=== PATIENT | female | born 1935 | race Caucasian/White ===

== ENCOUNTER 2023-01-13 08:05 | Oncology outpatient (recurring) (ONCR) | payer MEDICARE, SELFPAY | END 2023-01-16 23:59 | disposition home or self-care (01) | PROVIDERS: PCP Family Medicine; Visit Provider Internal Medicine Medical Oncology | DX: Z08 Encounter for follow-up examination after completed treatment for malignant neoplasm (principal); Z85.3 Personal history of malignant neoplasm of breast; Z85.42 Personal history of malignant neoplasm of other parts of uterus; Z85.820 Personal history of malignant melanoma of skin; Z85.850 Personal history of malignant neoplasm of thyroid; Z90.13 Acquired absence of bilateral breasts and nipples; Z90.09 Acquired absence of other part of head and neck; Z90.79 Acquired absence of other genital organ(s); Z90.89 Acquired absence of other organs; Z87.891 Personal history of nicotine dependence | CPT/HCPCS: 99203 ==

== ENCOUNTER 2023-01-25 09:52 | Outpatient (CLI) | payer MEDICARE, SELFPAY ==
[2023-01-25 11:08] LABS: Basophils # 0.1 10^3/uL (0.0-0.1); Basophils % 0.8 %; Eosinophils # 0.2 10^3/uL (0.0-0.8); Eosinophils % 2.2 %; Hematocrit 41.7 % (37.0-47.0); Hemoglobin 13.4 g/dL (11.5-15.3); Lymphocytes # 1.3 10^3/uL (0.8-4.8); Lymphocytes % 15.5 %; Mean Corpuscular HGB Conc 32.1 g/dL (30.0-36.0); Mean Corpuscular Hemoglobin 28.5 pg (28.0-34.0); Mean Corpuscular Volume 88.7 fl (81-99); Mean Platelet Volume 10.4 fL (7.4-10.4); Monocytes # 0.8 10^3/uL (0.2-0.9); Monocytes % 9.5 %; Neutrophils # 6.08 10^3/uL (1.8-7.7); Neutrophils % 71.6 %; Nucleated Red Blood Cells % 0 %; Platelet Count 292 10^3/cmm (130-400); Red Cell Distribution Width 12.5 % (12.1-15.1); White Blood Count 8.5 10^3/uL (4.0-10.0)
[2023-01-25 11:32] LABS: Alanine Aminotransferase 17 U/L (0-33); Albumin Level 3.8 g/dL (3.5-5.2); Alkaline Phosphatase 95 U/L (35-105); Anion Gap 14.5 (5-19); Aspartate Amino Transferase 17 U/L (0-32); Blood Urea Nitrogen 10 mg/dL (8-23); Calcium 8.8 mg/dL (8.5-10.5); Carbon Dioxide 26 mmol/L (22-29); Chloride 100 mmol/L (98-107); Free T4 Free Thyroxine 1.75 ng/dL (0.82-1.77); Globulin 3.1 g/dL (1.3-4.6); Glucose 104 mg/dL (65-115); Osmolality Calculated 281 mOsm/kg (285-295); Potassium 4.5 mmol/L (3.5-5.1); Sodium 136 mmol/L (136-145); Thyroid Stimulating Hormone 0.47 uIU/mL (0.27-4.20); Total Bilirubin 0.2 mg/dL (0.15-1.2); Total Protein 6.9 g/dL (6.6-8.7)
[2023-01-28 16:00] LABS: Thyroglobulin AB 1 IU/mL (< or = 1)
[2023-02-05 22:49] LABS: Thyroglobulin Level <0.4 ng/mL
== END 2023-01-25 09:53 | disposition home or self-care (01) ==
PROVIDERS: PCP Family Medicine; Visit Provider Internal Medicine Medical Oncology
DX: C73 Malignant neoplasm of thyroid gland (principal)
CPT/HCPCS: 36415; 80053; 84432; 84439; 84443; 85025; 86800

== ENCOUNTER 2023-01-25 20:42 | Emergency (ER) | payer MEDICARE, SELFPAY ==
[2023-01-25 20:54] VITALS: BP 175/82; PULSE 103; RESP 18; TEMP 36.7; O2SAT 97
--- NOTE | 2023-01-25 21:09 | ED_ITS ---
Documented by User: Devendra Ryan MD 01/28/23 21:43 HPI - General Adult General: Chief complaint: General Medical Stated complaint: low bp Time Seen by Provider: 01/25/23 20:59 History of Present Illness: Ms Blandon is an 87-year-old lady with history of hypertension presenting to the emergency department for generalized illness. She reports being at her baseline health and took her blood pressure medications as normal. Apparently a pill looked different and so she contacted her doctor and was told to take enalapril 20 mg twice daily. Shortly after taking the second dose she developed feeling shakiness like her heart was pounding. She currently feels a little better. At worst symptoms were moderate to severe in intensity. Denies similar episodes in the past or other known specific trigger. No other specific changes in health, exacerbating, or alleviating factors identified. Onset (ago): hour(s) Severity: moderate Quality: other Relieving factors: none Exacerbating factors: none Associated symptoms: Reports malaise, palpitations and other Review of Systems General: Reports: 10 or more systems reviewed and unremarkable except in HPI and below Const: Reports: malaise Card: Reports: palpitations PFSH ED PFSH: Medical History Chronic kidney disease Coronary artery disease Degenerative arthritis History of breast cancer History of cancer of vulva History of melanoma History of thyroid cancer Hyperlipidemia Hypertension Surgical History H/O bilateral cataract extraction History of bilateral mastectomy (12/03/15) Bilateral mastectomy with right axillary lymph node dissection History of heart bypass surgery History of hysterectomy with bilateral oophorectomy (1984) History of lumbosacral spine surgery History of melanoma excision excision of melanoma from the left cheek History of removal of implants of both breasts History of thyroidectomy (05/12/18) Total thyroidectomy 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 History of total knee arthroplasty History of vulvectomy (1990) Partial vulvectomy for vulvar cancer Family History Sister Dementia Brother Stroke Mother Stroke CAD (coronary artery disease) Cancer uterine Father Lung disease Family/Other Suicide Grandson Other Hyperlipidemia Hypertension Denies family history of Diabetes Clotting disorder Psychiatric illness Chronic kidney disease (CKD) Anesthesia complication Bleeding disorder Social History Smoking and tobacco status: former smoker Quit status (tobacco): has quit using tobacco Year quit tobacco: 1978 Former quit date comment: smoked x 27 years Alcohol intake: former Former alcohol use details: socially Physical Exam Const: COMMON NORMALS: alert GENERAL APPEARANCE: cooperative and well developed HENMT: COMMON NORMALS: normocephalic and atraumatic HEAD & SCALP: normocephalic and atraumatic Eye: COMMON NORMALS: conjunctivae normal CONJUNCTIVA: Yes conjunctivae normal SCLERA: sclerae normal Neck/C-Spine: COMMON NORMALS: supple GENERAL: Yes trachea midline Resp: COMMON NORMALS: clear to auscultation bilaterally EFFORT & INSPECTION: Yes able to speak in complete sentences AUSCULTATION: clear to auscultation bilaterally Cardio: COMMON NORMALS: regular rhythm RATE: tachycardic RHYTHM: regular rhythm GI: COMMON NORMALS: Soft to palpation PALPATION: Yes Soft to palpation and No Tenderness to palpation present (GI) Extremity: GENERAL: Yes normal exam except as noted and No edema Neuro: COMMON NORMALS: moves all extremities SENSORIUM/ORIENTATION: Yes alert and No Orientation impaired Psych: COMMON NORMALS: mental status grossly normal and Normal thought process present THOUGHT PROCESS: Normal thought process present Course Vital Signs: Vital signs: Vital Signs Temperature 98.0 F 01/26/23 00:23 Pulse Rate 68 01/26/23 00:23 Respiratory Rate 16 01/26/23 00:23 Blood Pressure 133/60 01/26/23 00:23 Pulse Oximetry 98 01/26/23 00:23 Oxygen Delivery Me thod Room Air 01/25/23 20:54 MDM - General Adult Medical Decision Making 87-year-old lady presenting due to concern over blood pressure changes associated with generalized symptoms. Exam as above. EKG demonstrate sinus tachycardia with occasional PVCs, normal axis and intervals, no STEMI.. Labs notable for mild leukocytosis, normal hemoglobin and platelet count of metabolic panel without acute derangement. Initial troponin is minimally elevated with repeat pending. Patient treated with small IV fluid bolus and medications for hypertension with improvement. Handed off to Dr. Morse pending completion of ED evaluation. Patient presents here with chest pain is atypical in nature she has been pain- free here her troponins are normal she feels much improved she is stable for discharge she is to follow-up with PCP and return if worsening she understands a grees to plan. Lab Data 01/25/23 21:49 01/25/23 21:49 Laboratory Results WBC 11.9 10^3/uL (4.0-10.0) H 01/25/23 21:49 RBC 4.65 10^6/uL (4.1-5.3) 01/25/23 21:49 Hgb 13.4 g/dL (11.5-15.3) 01/25/23 21:49 Hct 40.8 % (37.0-47.0) 01/25/23 21:49 MCV 87.7 fl (81-99) 01/25/23 21:49 MCH 28.8 pg (28.0-34.0) 01/25/23 21:49 MCHC 32.8 g/dL (30.0-36.0) 01/25/23 21:49 RDW 12.9 % (12.1-15.1) 01/25/23 21:49 Plt Count 278 10^3/cmm (130-400) 01/25/23 21:49 MPV 10.1 fL (7.4-10.4) 01/25/23 21:49 Neut % (Auto) 71.9 % 01/25/23 21:49 Lymph % (Auto) 14.6 % 01/25/23 21:49 [place] % (Auto) 10.3 % 01/25/23 21:49 Eos % (Auto) 2.1 % 01/25/23 21:49 Baso % (Auto) 0.8 % 01/25/23 21:49 Neut # (Auto) 8.56 10^3/uL (1.8-7.7) H 01/25/23 21:49 Lymph # (Auto) 1.7 10^3/uL (0.8-4.8) 01/25/23 21:49 [place] # (Auto) 1.2 10^3/uL (0.2-0.9) H 01/25/23 21:49 Eos # (Auto) 0.3 10^3/uL (0.0-0.8) 01/25/23 21:49 Baso # (Auto) 0.1 10^3/uL (0.0-0.1) 01/25/23 21:49 Nucleated RBC % (auto) 0 % 01/25/23 21:49 Nucleated RBCs # 0.0 /100WBC 01/25/23 21:49 Sodium 138 mmol/L (136-145) 01/25/23 21:49 Potassium 4.0 mmol/L (3.5-5.1) 01/25/23 21:49 Chloride 102 mmol/L (98-107) 01/25/23 21:49 Carbon Dioxide 26 mmol/L (22-29) 01/25/23 21:49 Anion Gap 14.0 (5-19) 01/25/23 21:49 BUN 12 mg/dL (8-23) 01/25/23 21:49 Creatinine 0.8 mg/dL (0.5-0.9) 01/25/23 21:49 GFR Calculation Not Reportable 01/25/23 21:49 Glucose 114 mg/dL (65-115) 01/25/23 21:49 Calculated Osmolality 287 mOsm/kg (285-295) 01/25/23 21:49 Calcium 9.0 mg/dL (8.5-10.5) 01/25/23 21:49 Magnesium 2.1 mg/dL (1.7-2.3) 01/25/23 21:49 Total Bilirubin 0.2 mg/dL (0.15-1.2) 01/25/23 21:49 AST 20 U/L (0-32) 01/25/23 21:49 ALT 17 U/L (0-33) 01/25/23 21:49 Alkaline Phosphatase 96 U/L (35-105) 01/25/23 21:49 Troponin T Baseline 18 ng/L (0-10) H 01/25/23 21:49 Troponin T 120 Minute 20.13 ng/L (0-10) H 01/25/23 23:36 Delta Troponin T 2.13 ABS# (0-10) 01/25/23 23:36 NT-Pro-B Natriuret Pep 617 pg/mL (0-450) H 01/25/23 21:49 Total Protein 6.8 g/dL (6.6-8.7) 01/25/23 21:49 Albumin 3.9 g/dL (3.5-5.2) 01/25/23 21:49 Globulin 2.9 g/dL (1.3-4.6) 01/25/23 21:49 TSH 0.92 uIU/mL (0.27-4.20) 01/25/23 21:49 Discharge Plan Discharge Patient Disposition: Home Clinical Impression: Hypertension, Heart palpitations Condition: Stable Prescriptions: No Action zinc gluconate 50 mg tablet 50 mg PO DAILY vitamin K2 45 mcg capsule See Rx Instructions PO DAILY Rx Instructions: dose unknown orally daily; cholecalciferol (vitamin D3) 25 mcg (1,000 unit) capsule 25 mcg PO DAILY ascorbic acid (vitamin C) 1,000 mg tablet 4 g PO BID cyanocobalamin (vitamin B-12) 1,000 mcg capsule 1,000 mcg PO DAILY tramadol 50 mg tablet 50 mg PO Q8H PRN Rx Instructions: for up to 90 days multivitamin Tablet 1 tab PO DAILY red yeast rice 600 mg capsule See Rx Instructions PO DAILY Rx Instructions: strength unknown orally daily; give with meal/snack primidone 50 mg tablet 250 mg PO TID krill oil 500 mg capsule See Rx Instructions PO .COMPLEX Rx Instructions: strength unknown orally; hydralazine 50 mg tablet 50 mg PO BID furosemide 40 mg tablet 40 mg PO DAILY ezetimibe 10 mg tablet 10 mg PO DAILY clonidine HCl 0.1 mg tablet 0.1 mg PO TID aspirin [Rosy Low Dose Aspirin] 81 mg tablet,delayed release (DR/EC) 81 mg PO DAILY metoprolol succinate 100 mg tablet extended release 24 hr 100 mg PO DAILY levothyroxine 137 mcg capsule 137 mcg PO DAILY enalapril maleate 20 mg tablet 20 mg PO BID Discharge Orders: Discharge ED (Routine); Ordered 01/26/23 Ordered By: Kathy Morse Referrals: Wiley Middleton MD [Primary Care Provider] - 1-3 days Discharge Diet: Usual diet Discharge Activity: Resume usual activity Patient Instructions: Heart Palpitations (ED), Hypertension (ED) Activity Restrictions/Additional Instructions: Thank you for visiting the emergency department. You were seen and evaluated for episode of high blood pressure as well as generalized symptoms including heart palpitations. The exact cause of your symptoms is unclear though does not appear to need hospitalization at this time. Please continue your medication regimen and call your primary care provider in the morning for follow-up. Return to the emergency department for chest pain, shortness of breath, recurrent symptoms, headache, any new neurologic symptoms, or anything else that you are concerned about and feel needs emergency department evaluation. Coding Level of Care Code ED Commercial Management Accountant for Chg Fwd Documented by User: Kathy Morse MD 01/26/23 00:19 HPI - General Adult General: Chief complaint: General Medical Stated complaint: low bp Time Seen by Provider: 01/25/23 20:59 PFSH ED PFSH: Medical History Chronic kidney disease Coronary artery disease Degenerative arthritis History of breast cancer History of cancer of vulva History of melanoma History of thyroid cancer Hyperlipidemia Hypertension Surgical History H/O bilateral cataract extraction History of bilateral mastectomy (12/03/15) Bilateral mastectomy with right axillary lymph node dissection History of heart bypass surgery History of hysterectomy with bilateral oophorectomy (1984) History of lumbosacral spine surgery History of melanoma excision excision of melanoma from the left cheek History of removal of implants of both breasts History of thyroidectomy (05/12/18) Total thyroidectomy 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 History of total knee arthroplasty History of vulvectomy (1990) Partial vulvectomy for vulvar cancer Family History Sister Dementia Brother Stroke Mother Stroke CAD (coronary artery disease) Cancer uterine Father Lung disease Family/Other Suicide Grandson Other Hyperlipidemia Hypertension Denies family history of Diabetes Clotting disorder Psychiatric illness Chronic kidney disease (CKD) Anesthesia complication Bleeding disorder Social History Smoking and tobacco status: former smoker Quit status (tobacco): has quit using tobacco Year quit tobacco: 1978 Former quit date comment: smoked x 27 years Alcohol intake: former Former alcohol use details: socially Course Vital Signs: Vital signs: Vital Signs Temperature 98.0 F 01/26/23 00:23 Pulse Rate 68 01/26/23 00:23 Respiratory Rate 16 01/26/23 00:23 Blood Pressure 133/60 01/26/23 00:23 Pulse Oximetry 98 01/26/23 00:23 Oxygen Delivery Me thod Room Air 01/25/23 20:54 MDM - General Adult Medical Decision Making Patient presents here with chest pain is atypical in nature she has been pain- free here her troponins are normal she feels much improved she is stable for discharge she is to follow-up with PCP and return if worsening she understands agrees to plan. Medical Records I reviewed the patient's medical records. Lab Data I reviewed the patient's lab results. 01/25/23 21:49 01/25/23 21:49 Laboratory Results WBC 11.9 10^3/uL (4.0-10.0) H 01/25/23 21:49 RBC 4.65 10^6/uL (4.1-5.3) 01/25/23 21:49 Hgb 13.4 g/dL (11.5-15.3) 01/25/23 21:49 Hct 40.8 % (37.0-47.0) 01/25/23 21:49 MCV 87.7 fl (81-99) 01/25/23 21:49 MCH 28.8 pg (28.0-34.0) 01/25/23 21:49 MCHC 32.8 g/dL (30.0-36.0) 01/25/23 21:49 RDW 12.9 % (12.1-15.1) 01/25/23 21:49 Plt Count 278 10^3/cmm (130-400) 01/25/23 21:49 MPV 10.1 fL (7.4-10.4) 01/25/23 21:49 Neut % (Auto) 71.9 % 01/25/23 21:49 Lymph % (Auto) 14.6 % 01/25/23 21:49 [place] % (Auto) 10.3 % 01/25/23 21:49 Eos % (Auto) 2.1 % 01/25/23 21:49 Baso % (Auto) 0.8 % 01/25/23 21:49 Neut # (Auto) 8.56 10^3/uL (1.8-7.7) H 01/25/23 21:49 Lymph # (Auto) 1.7 10^3/uL (0.8-4.8) 01/25/23 21:49 [place] # (Auto) 1.2 10^3/uL (0.2-0.9) H 01/25/23 21:49 Eos # (Auto) 0.3 10^3/uL (0.0-0.8) 01/25/23 21:49 Baso # (Auto) 0.1 10^3/uL (0.0-0.1) 01/25/23 21:49 Nucleated RBC % (auto) 0 % 01/25/23 21:49 Nucleated RBCs # 0.0 /100WBC 01/25/23 21:49 Sodium 138 mmol/L (136-145) 01/25/23 21:49 Potassium 4.0 mmol/L (3.5-5.1) 01/25/23 21:49 Chloride 102 mmol/L (98-107) 01/25/23 21:49 Carbon Dioxide 26 mmol/L (22-29) 01/25/23 21:49 Anion Gap 14.0 (5-19) 01/25/23 21:49 BUN 12 mg/dL (8-23) 01/25/23 21:49 Creatinine 0.8 mg/dL (0.5-0.9) 01/25/23 21:49 GFR Calculation Not Reportable 01/25/23 21:49 Glucose 114 mg/dL (65-115) 01/25/23 21:49 Calculated Osmolality 287 mOsm/kg (285-295) 01/25/23 21:49 Calcium 9.0 mg/dL (8.5-10.5) 01/25/23 21:49 Magnesium 2.1 mg/dL (1.7-2.3) 01/25/23 21:49 Total Bilirubin 0.2 mg/dL (0.15-1.2) 01/25/23 21:49 AST 20 U/L (0-32) 01/25/23 21:49 ALT 17 U/L (0-33) 01/25/23 21:49 Alkaline Phosphatase 96 U/L (35-105) 01/25/23 21:49 Troponin T Baseline 18 ng/L (0-10) H 01/25/23 21:49 Troponin T 120 Minute 20.13 ng/L (0-10) H 01/25/23 23:36 Delta Troponin T 2.13 ABS# (0-10) 01/25/23 23:36 NT-Pro-B Natriuret Pep 617 pg/mL (0-450) H 01/25/23 21:49 Total Protein 6.8 g/dL (6.6-8.7) 01/25/23 21:49 Albumin 3.9 g/dL (3.5-5.2) 01/25/23 21:49 Globulin 2.9 g/dL (1.3-4.6) 01/25/23 21:49 TSH 0.92 uIU/mL (0.27-4.20) 01/25/23 21:49 Discharge Plan Discharge Patient Disposition: Home Clinical Impression: Hypertension, Heart palpitations Condition: Stable Prescriptions: No Action zinc gluconate 50 mg tablet 50 mg PO DAILY vitamin K2 45 mcg capsule See Rx Instructions PO DAILY Rx Instructions: dose unknown orally daily; cholecalciferol (vitamin D3) 25 mcg (1,000 unit) capsule 25 mcg PO DAILY ascorbic acid (vitamin C) 1,000 mg tablet 4 g PO BID cyanocobalamin (vitamin B-12) 1,000 mcg capsule 1,000 mcg PO DAILY tramadol 50 mg tablet 50 mg PO Q8H PRN Rx Instructions: for up to 90 days multivitamin Tablet 1 tab PO DAILY red yeast rice 600 mg capsule See Rx Instructions PO DAILY Rx Instructions: strength unknown orally daily; give with meal/snack primidone 50 mg tablet 250 mg PO TID krill oil 500 mg capsule See Rx Instructions PO .COMPLEX Rx Instructions: strength unknown orally; hydralazine 50 mg tablet 50 mg PO BID furosemide 40 mg tablet 40 mg PO DAILY ezetimibe 10 mg tablet 10 mg PO DAILY clonidine HCl 0.1 mg tablet 0.1 mg PO TID aspirin [Rosy Low Dose Aspirin] 81 mg tablet,delayed release (DR/EC) 81 mg PO DAILY metoprolol succinate 100 mg tablet extended release 24 hr 100 mg PO DAILY levothyroxine 137 mcg capsule 137 mcg PO DAILY enalapril maleate 20 mg tablet 20 mg PO BID Discharge Orders: Discharge ED (Routine); Ordered 01/26/23 Ordered By: Kathy Morse Referrals: Wiley Middleton MD [Primary Care Provider] - 1-3 days Discharge Diet: Usual diet Discharge Activity: Resume usual activity Patient Instructions: Heart Palpitations (ED), Hypertension (ED) Activity Restrictions/Additional Instructions: Thank you for visiting the emergency department. You were seen and evaluated for episode of high blood pressure as well as generalized symptoms including heart palpitations. The exact cause of your symptoms is unclear though does not appear to need hospitalization at this time. Please continue your medication regimen and call your primary care provider in the morning for follow-up. Return to the emergency department for chest pain, shortness of breath, recurre nt symptoms, headache, any new neurologic symptoms, or anything else that you are concerned about and feel needs emergency department evaluation. Coding Level of Care Code ED Commercial Management Accountant for Annetta Dumont
[2023-01-25 21:29] VITALS: BP 151/52; RESP 16
[2023-01-25 21:54] LABS: Basophils # 0.1 10^3/uL (0.0-0.1); Basophils % 0.8 %; Eosinophils # 0.3 10^3/uL (0.0-0.8); Eosinophils % 2.1 %; Hematocrit 40.8 % (37.0-47.0); Hemoglobin 13.4 g/dL (11.5-15.3); Lymphocytes # 1.7 10^3/uL (0.8-4.8); Lymphocytes % 14.6 %; Mean Corpuscular HGB Conc 32.8 g/dL (30.0-36.0); Mean Corpuscular Hemoglobin 28.8 pg (28.0-34.0); Mean Corpuscular Volume 87.7 fl (81-99); Mean Platelet Volume 10.1 fL (7.4-10.4); Monocytes # 1.2 10^3/uL (0.2-0.9); Monocytes % 10.3 %; Neutrophils # 8.56 10^3/uL (1.8-7.7); Neutrophils % 71.9 %; Nucleated Red Blood Cells % 0 %; Platelet Count 278 10^3/cmm (130-400); Red Blood Count 4.65 10^6/uL (4.1-5.3); Red Cell Distribution Width 12.9 % (12.1-15.1); White Blood Count 11.9 10^3/uL (4.0-10.0)
--- NOTE | 2023-01-25 22:12 | ECG_ITS ---
[facility] Test Date: 2023-01-25 Pat Name: Rolanda Blandon Department: Room: Gender: Female Store Administrator: : 1935 Requested By: Devendra Ryan Order Number: [id number] Gregor MD: Josh Simons M.D. Measurements Intervals [place] Rate: 110 P: 49 CA: 189 QRS: 18 QRSD: 92 T: 30 QT: 352 QTc: 478 Interpretive Statements SINUS TACHYCARDIA WITH OCCASIONAL VENTRICULAR PREMATURE COMPLEXES INCOMPLETE RIGHT BUNDLE BRANCH BLOCK [90+ ms QRS DURATION, TERMINAL R IN V1/V2, 40+ ms S IN I/aVL/V4/V5/V6] SEPTAL MYOCARDIAL INFARCTION , OF INDETERMINATE AGE [40+ ms Q WAVE IN V1/V2] No previous ECG available for comparison Electronically Signed On 01-26-2023 7:17:51 CDT by Josh Simons M.D. [id number]
[2023-01-25] MEDS: metoprolol tartrate 1 mg/1 mL SDV 5 mL 5 MG IVP (22:42)
[2023-01-25 22:45] VITALS: BP 192/68
[2023-01-25 22:47] VITALS: BP 188/72
[2023-01-25] MEDS: sodium chloride 0.9% 500 ML 999 ML IV (22:47)
[2023-01-25 22:49] LABS: Alanine Aminotransferase 17 U/L (0-33); Albumin Level 3.9 g/dL (3.5-5.2); Alkaline Phosphatase 96 U/L (35-105); Aspartate Amino Transferase 20 U/L (0-32); Blood Urea Nitrogen 12 mg/dL (8-23); Carbon Dioxide 26 mmol/L (22-29); Chloride 102 mmol/L (98-107); Globulin 2.9 g/dL (1.3-4.6); Glucose 114 mg/dL (65-115); Magnesium 2.1 mg/dL (1.7-2.3); NT Pro B Type Natriuretic Pept 617 pg/mL (0-450); Osmolality Calculated 287 mOsm/kg (285-295); Sodium 138 mmol/L (136-145); Thyroid Stimulating Hormone 0.92 uIU/mL (0.27-4.20); Total Bilirubin 0.2 mg/dL (0.15-1.2); Total Protein 6.8 g/dL (6.6-8.7)
[2023-01-25 23:03] LABS: Troponin(5th) Baseline 18 ng/L (0-10)
[2023-01-25 23:13] VITALS: BP 183/81
[2023-01-25] MEDS: cloNIDine 0.1 mg Tablet PO (23:13)
[2023-01-25 23:16] VITALS: BP 183/81
--- NOTE | 2023-01-25 23:23 | ECG_ITS ---
[facility] Test Date: 2023-01-26 Pat Name: Rolanda Blandon Department: Room: Gender: Female Section Supervisor: : 1935 Requested By: Deevndra Ryan Order Number: [id number] Gregor MD: Kristian Velasquez M.D. Measurements Intervals [place] Rate: 66 P: 83 SD: 193 QRS: 22 QRSD: 93 T: 16 QT: 435 QTc: 458 Interpretive Statements SINUS RHYTHM WITH OCCASIONAL VENTRICULAR PREMATURE COMPLEXES INCOMPLETE RIGHT BUNDLE BRANCH BLOCK [90+ ms QRS DURATION, TERMINAL R IN V1/V2, 40+ ms S IN I/aVL/V4/V5/V6] SEPTAL MYOCARDIAL INFARCTION , PROBABLY OLD [40+ ms Q WAVE IN V1/V2] Compared to ECG 01/25/2023 22:12:11 Sinus tachycardia no longer present Myocardial infarct finding still present Electronically Signed On 01-26-2023 21:16:34 CDT by Kristian Velasquez M.D. [id number]
[2023-01-26 00:08] VITALS: BP 133/60; PULSE 68; RESP 16; O2SAT 98
[2023-01-26 00:11] LABS: Troponin 5 2HR 20.13 ng/L (0-10)
[2023-01-26 00:12] LABS: Troponin 5 2HR Delta 2.13 ABS# (0-10)
[2023-01-26 00:23] VITALS: BP 133/60; PULSE 68; RESP 16; TEMP 36.7; O2SAT 98
== END 2023-01-26 00:25 | disposition home or self-care (01) ==
PROVIDERS: Emergency Medicine; Emergency Provider Emergency Medicine; PCP Family Medicine
DX: R00.2 Palpitations (principal); Z79.82 Long term (current) use of aspirin; Z87.891 Personal history of nicotine dependence; I12.9 Hypertensive chronic kidney disease with stage 1 through stage 4 chronic kidney disease, or unspecified chronic kidney disease; N18.9 Chronic kidney disease, unspecified; I25.10 Atherosclerotic heart disease of native coronary artery without angina pectoris; Z85.3 Personal history of malignant neoplasm of breast; Z85.44 Personal history of malignant neoplasm of other female genital organs; Z85.850 Personal history of malignant neoplasm of thyroid; E78.5 Hyperlipidemia, unspecified
CPT/HCPCS: 80053; 83735; 83880; 84443; 84484; 85025; 93005; 96361; 96374; 99284; J3490; J7040

== ENCOUNTER 2023-09-08 16:20 | Oncology outpatient (recurring) (ONCR) | payer MEDICARE, SELFPAY | END 2023-09-18 23:59 | disposition home or self-care (01) | LOC: ONCMED 16:22 | PROVIDERS: PCP Family Medicine; Visit Provider Internal Medicine Medical Oncology | DX: C80.0 Disseminated malignant neoplasm, unspecified (principal); Z79.899 Other long term (current) drug therapy | CPT/HCPCS: 99214 ==

== ENCOUNTER 2023-10-05 14:40 | Observation (INO) | payer MEDICARE, SELFPAY ==
[2023-10-05] VITALS (16 sets, daily range): BP systolic 108–240; BP diastolic 49–97; PULSE 88–116; RESP 16–23; TEMP 37.1; O2SAT 94–98; BMI 32.1
--- NOTE | 2023-10-05 15:27 | ED_ITS ---
HPI - Headache 2 General: Chief Complaint: Headache Stated Complaint: headaches, blood pressure Time Seen by Provider: 10/05/23 15:26 Source: patient History of Present Illness: 87-year-old female presents emergency ro om with elevated blood pressure complaining of a headache no chest pain or shortness of breath no recent medication changes she did take all of her blood pressure medications regularly last couple days despite this she is having some palpitations headache and markedly elevated blood pressure. No focal neurologic deficits Associated symptoms: Deny chest pain, fever(s) or rash Review of Systems 2 Const: Denies: fever(s) or chills Card: Denies: chest pain Resp: Denies: dyspnea GI: Denies: abdominal pain : Denies: dysuria, urinary frequency or urinary urgency Musc: Denies: neck pain or back pain Skin/Breast: Denies: rash PFSH ED 2 PFSH: Medical History Degenerative arthritis Hyperlipidemia History of cancer of vulva History of thyroid cancer History of breast cancer History of melanoma Chronic kidney disease Coronary artery disease Hypertension Surgical History H/O bilateral cataract extraction History of lumbosacral spine surgery History of total knee arthroplasty History of hysterectomy with bilateral oophorectomy (1984) History of removal of implants of both breasts History of vulvectomy (1990) Partial vulvectomy for vulvar cancer History of melanoma excision excision of melanoma from the left cheek History of bilateral mastectomy (12/03/15) Bilateral mastectomy with right axillary lymph node dissection History of thyroidectomy (05/12/18) Total thyroidectomy 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 History of heart bypass surgery Family History Sister Dementia Brother Stroke Mother Stroke CAD (coronary artery disease) Cancer uterine Father Lung disease Family/Other Suicide Grandson Other Hyperlipidemia Hypertension Denies family history of Diabetes Clotting disorder Psychiatric illness Chronic kidney disease (CKD) Anesthesia complication Bleeding disorder Social History Smoking and tobacco/nicotine status: former use of tobacco/nicotine Quit status (tobacco/nicotine): has quit using Year quit tobacco: 1978 Former quit date comment: smoked x 27 years Alcohol intake: former Former alcohol use details: socially Physical Exam 2 Const: COMMON NORMALS: no acute distress GENERAL APPEARANCE: cooperative and comfortable ORIENTATION/CONSCIOUSNESS: Yes awake, Yes oriented to person, Yes oriented to place and Yes oriented to time HENMT: COMMON NORMALS: normocephalic, atraumatic and hearing grossly normal bilaterally HEAD & SCALP: normocephalic and atraumatic Resp: COMMON NORMALS: normal respiratory effort, No retractions, No use of accessory muscles and clear to auscultation bilaterally AUSCULTATION: clear to auscultation bilaterally Cardio: COMMON NORMALS: regular rate, regular rhythm and No murmurs present (Cardio) RATE: regular rate RHYTHM: regular rhythm GI: COMMON NORMALS: Soft to palpation and No hepatosplenomegaly present A USCULTATION: Yes normoactive bowel sounds PALPATION: Yes Soft to palpation, No Tenderness to palpation present (GI), No Guarding due to palpation present (GI) and Yes No hepatosplenomegaly present Extremity: COMMON NORMALS: normal to inspection, capillary refill normal, no clubbing, cyanosis or edema, no calf tenderness and no pedal edema Neuro: SENSORIUM/ORIENTATION: Yes oriented to person, Yes oriented to place and Yes oriented to time Skin: COMMON NORMALS: no rashes or lesions noted GENERAL SKIN EXAM: no rashes or lesions noted Course 2 Vital Signs: Vital signs: Vital Signs Temperature 98.7 F 10/05/23 14:52 Pulse Rate 116 H 10/05/23 14:52 Respiratory Rate 16 10/05/23 14:52 Blood Pressure 179/86 10/05/23 16:10 Pulse Oximetry 98 10/05/23 14:52 Oxygen Delivery Me thod Room Air 10/05/23 14:52 MDM - Headache Medical Decision Making Accelerated hypertension with severe headache initially given labetalol and hydralazine with minimal improvement. Started on nicardipine somewhat improved was also given labetalol blood pressure now 138/71 will admit for accelerated hypertension currently on nicardipine 10. Discussed with hospitalist orders written Medical Records I reviewed the patient's medical records. Lab Data I reviewed the patient's lab results. 10/05/23 16:04 10/05/23 16:[address] 10/05/23 15:58 IMPRESSION: No acute intracranial abnormality. Laboratory Results WBC 10.56 10^3/uL (3.29-11.43) 10/05/23 16:04 RBC 5.48 10^6/uL (3.85-5.65) 10/05/23 16:04 Hgb 15.80 g/dL (11.27-16.99) 10/05/23 16:04 Hct 47.2 % (36-47) H 10/05/23 16:04 MCV 86.1 fl (85-98) 10/05/23 16:04 MCH 28.8 pg (27-33) 10/05/23 16:04 MCHC 33.5 g/dL (30-55) 10/05/23 16:04 RDW 13.3 % (12.1-15.1) 10/05/23 16:04 Plt Count 341 10^3/cmm (157-399) 10/05/23 16:04 MPV 10.4 fL (7.4-10.4) 10/05/23 16:04 Neut % (Auto) 72.9 % 10/05/23 16:04 Lymph % (Auto) 16.3 % 10/05/23 16:04 [place] % (Auto) 8.5 % 10/05/23 16:04 Eos % (Auto) 0.9 % 10/05/23 16:04 Baso % (Auto) 0.7 % 10/05/23 16:04 Neut # (Auto) 7.71 10^3/uL (1.8-7.7) H 10/05/23 16:04 Lymph # (Auto) 1.7 10^3/uL (0.8-4.8) 10/05/23 16:04 [place] # (Auto) 0.9 10^3/uL (0.2-0.9) 10/05/23 16:04 Eos # (Auto) 0.1 10^3/uL (0.0-0.8) 10/05/23 16:04 Baso # (Auto) 0.1 10^3/uL (0.0-0.1) 10/05/23 16:04 Nucleated RBC % (auto) 0 % 10/05/23 16:04 Nucleated RBCs # 0.0 /100WBC 10/05/23 16:04 Sodium 137 mmol/L (136-145) 10/05/23 16:04 Potassium 3.7 mmol/L (3.5-5.1) 10/05/23 16:04 Chloride 100 mmol/L (98-107) 10/05/23 16:04 Carbon Dioxide 22 mmol/L (22-29) 10/05/23 16:04 Anion Gap 18.7 (5-19) 10/05/23 16:04 BUN 12 mg/dL (8-23) 10/05/23 16:04 Creatinine 0.6 mg/dL (0.5-0.9) 10/05/23 16:04 GFR Calculation Not Reportable 10/05/23 16:04 Glucose 138 mg/dL (65-115) H 10/05/23 16:04 Calculated Osmolality 286 mOsm/kg (285-295) 10/05/23 16:04 Calcium 9.6 mg/dL (8.5-10.5) 10/05/23 16:04 Total Bilirubin 0.3 mg/dL (0.15-1.2) 10/05/23 16:04 AST 21 U/L (0-32) 10/05/23 16:04 ALT 19 U/L (0-33) 10/05/23 16:04 Alkaline Phosphatase 117 U/L (35-105) H 10/05/23 16:04 Total Protein 7.9 g/dL (6.6-8.7) 10/05/23 16:04 Albumin 4.1 g/dL (3.5-5.2) 10/05/23 16:04 Globulin 3.8 g/dL (1.3-4.6) 10/05/23 16:04 Urine Color Yellow (Yellow) 10/05/23 15:48 Urine Appearance Clear (CLEAR) 10/05/23 15:48 Urine pH 6 (5-7) 10/05/23 15:48 Ur Specific [place] 1.020 (1.005-1.030) 10/05/23 15:48 Urine Protein 1+ (Negative) H 10/05/23 15:48 Urine Glucose (UA) Norm (Normal) 10/05/23 15:48 Urine Ketones Negative (Negative) 10/05/23 15:48 Urine Blood Neg (Negative) 10/05/23 15:48 Urine Nitrate Negative (Negative) 10/05/23 15:48 Urine Bilirubin Neg (Negative) 10/05/23 15:48 Urine Urobilinogen Norm mg/dL (Negative) 10/05/23 15:48 Ur Leukocyte Esterase 1+ (Negative) H 10/05/23 15:48 Urine RBC 0-4 /hpf (0-2) H 10/05/23 15:48 Urine WBC 5-10 /hpf (0-5) H 10/05/23 15:48 Ur Squamous Epith Cells 0-4 /hpf (0-5) H 10/05/23 15:48 Amorphous Sediment Trace /hpf 10/05/23 15:48 Urine Bacteria Trace /hpf (NONE) 10/05/23 15:48 Hyaline Casts 0-4 /lpf H 10/05/23 15:48 Urine Mucus 1+ /hpf 10/05/23 15:48 All radiology interpretation(s) finalized by discharge Discharge Plan Discharge Patient Disposition: Admitted As Inpatient Admit Provider: Floresita Pratt Clinical Impression: Accelerated hypertension, Cancer of right breast Condition: Stable Coding Level of Care Code ED 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
--- NOTE | 2023-10-05 15:58 | CTR_ITS ---
PROCEDURE INFORMATION: Exam: CT Head Without Contrast Exam date and time: 10/05/2023 4:15 PM Age: 87 years old Clinical indication: Pain; Headache not specified; Additional info: Accelerated hypertension headache TECHNIQUE: Imaging protocol: Computed tomography of the head without contrast. Radiation optimization: All CT scans at this facility use at least one of these dose optimization techniques: automated exposure control; mA and/or kV adjustment per patient size (includes targeted exams where dose is matched to clinical indication); or iterative reconstruction. COMPARISON: No relevant prior studies available. RADIATION DOSE METRICS: Total DLP (mGy-cm): 1121 FINDINGS: Brain: No hemorrhage. No edema. Mild diffuse cerebral atrophy and sequela of chronic small vessel ischemic disease. No mass effect. Cerebral ventricles: No ventriculomegaly. Paranasal sinuses: Visualized sinuses are unremarkable. No fluid levels. Mastoid air cells: Visualized mastoid air cells are well aerated. Bones/joints: Unremarkable. No acute fracture. Soft tissues: Unremarkable. CT/CT head wo con* [id number] IMPRESSION: No acute intracranial abnormality.
[2023-10-05] MEDS: labetalol 5 mg/mL SDV 20mL 10 MG IVP ×2 (16:06→17:55)
[2023-10-05] MEDS: hyDRALAzine 20 mg/mL INJ 1 mL IVP (16:06)
--- NOTE | 2023-10-05 16:23 | ECG_ITS ---
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 Measurements Intervals [place] Rate: 96 P: 90 MT: 193 QRS: 22 QRSD: 93 T: 35 QT: 380 QTc: 481 Interpretive Statements SINUS RHYTHM WITH OCCASIONAL SUPRAVENTRICULAR PREMATURE COMPLEXES INCOMPLETE RIGHT BUNDLE BRANCH BLOCK [90+ ms QRS DURATION, TERMINAL R IN V1/V2, 40+ ms S IN I/aVL/V4/V5/V6] SEPTAL MYOCARDIAL INFARCTION , OF INDETERMINATE AGE [40+ ms Q WAVE IN V1/V2] Compared to ECG 01/26/2023 00:05:21 Ventricular premature complex(es) no longer present Myocardial infarct finding still present Electronically Signed On 10-06-2023 11:05:36 SHIP PURSER by Josh Simons M.D. [email or web address]/[id number]
[2023-10-05 16:25] LABS: Basophils # 0.1 10^3/uL (0.0-0.1); Basophils % 0.7 %; Eosinophils # 0.1 10^3/uL (0.0-0.8); Eosinophils % 0.9 %; Hematocrit 47.2 % (36-47); Lymphocytes # 1.7 10^3/uL (0.8-4.8); Lymphocytes % 16.3 %; Mean Corpuscular HGB Conc 33.5 g/dL (30-55); Mean Corpuscular Hemoglobin 28.8 pg (27-33); Mean Corpuscular Volume 86.1 fl (85-98); Mean Platelet Volume 10.4 fL (7.4-10.4); Monocytes # 0.9 10^3/uL (0.2-0.9); Monocytes % 8.5 %; Neutrophils # 7.71 10^3/uL (1.8-7.7); Neutrophils % 72.9 %; Nucleated Red Blood Cells % 0 %; Platelet Count 341 10^3/cmm (157-399); Red Blood Count 5.48 10^6/uL (3.85-5.65); Red Cell Distribution Width 13.3 % (12.1-15.1); White Blood Count 10.56 10^3/uL (3.29-11.43)
[2023-10-05 16:45] LABS: Add Urine Microscopic? YES; Bilirubin Urine Neg (Negative); Blood Urine Neg (Negative); Glucose Urine UA Norm (Normal); Ketones Urine Negative (Negative); Leukocyte Esterase Urine 1+ (Negative); Nitrate Urine Negative (Negative); Protein Urine 1+ (Negative); Urine Appearance Clear (CLEAR); Urine Color Yellow (Yellow); Urobilinogen Urine Norm (Negative); pH Urine 6 (5-7)
[2023-10-05 16:50] LABS: Add Urine Culture? No; Amorphous Sediment Urine TRACE /hpf; Bacteria Urine TRACE /hpf; Hyaline Casts Urine 0-4 /lpf; Mucus Urine 1+ /hpf; RBC Urine 0-4 /hpf (0-2); Squamous Epithelial Cell Urine 0-4 /hpf (0-5)
--- NOTE | 2023-10-05 17:07 | XRR_ITS ---
PROCEDURE INFORMATION: Exam: XR Chest Exam date and time: 10/05/2023 5:12 PM Age: 87 years old Clinical indication: Cough and dyspnea; Additional info: Dyspnea/cough TECHNIQUE: Imaging protocol: Radiologic exam of the chest. Views: 1 view. COMPARISON: No relevant prior studies available. FINDINGS: Lungs: No consolidation. Pleural spaces: No pleural effusion. No pneumothorax. Heart/Mediastinum: Sequela prior CABG. No cardiomegaly. Bones/joints: Sternotomy wires noted. Visualized osseous structures are intact. Soft tissues: Right axillary surgical clips noted. XR/XR chest 1V portable [id number] IMPRESSION: No acute findings.
[2023-10-05] MEDS: nicardipine 20 MG/200 ML PREMIX 50 MG IV ×2 (17:23→21:30)
[2023-10-05 17:27] LABS: Alanine Aminotransferase 19 U/L (0-33); Albumin Level 4.1 g/dL (3.5-5.2); Alkaline Phosphatase 117 U/L (35-105); Anion Gap 18.7 (5-19); Aspartate Amino Transferase 21 U/L (0-32); Blood Urea Nitrogen 12 mg/dL (8-23); Calcium 9.6 mg/dL (8.5-10.5); Carbon Dioxide 22 mmol/L (22-29); Chloride 100 mmol/L (98-107); Creatinine Clr Calc Pharmacy 50.3153; Globulin 3.8 g/dL (1.3-4.6); Glucose 138 mg/dL (65-115); Osmolality Calculated 286 mOsm/kg (285-295); Potassium 3.7 mmol/L (3.5-5.1); Sodium 137 mmol/L (136-145); Total Bilirubin 0.3 mg/dL (0.15-1.2); Total Protein 7.9 g/dL (6.6-8.7)
[2023-10-05] MEDS: acetaminophen 500 mg Tablet 1000 MG PO (17:54)
--- NOTE | 2023-10-05 18:01 | P.HP_ITS ---
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 Patient is stating that she is very compliant with her medications, very active, she drives, takes care of her daily activities on her own, Review of Systems 2 Const: Denies: fever(s) Eyes: Denies: change in vision ENMT: Denies: throat pain Card: Reports: chest pain Resp: Denies: dyspnea GI: Denies: abdominal pain : Denies: flank pain Medications/Allergies Home Medications Medication Instructions Recorded Confirmed Last Taken Type ascorbic acid (vitamin C) 1,000 mg 1,000 mg PO QAM 01/13/23 10/05/23 10/05/23 History tablet aspirin 81 mg tablet,delayed 81 mg PO QPM 01/13/23 10/05/23 10/04/23 History release (Rosy Low Dose Aspirin) cholecalciferol (vitamin D3) 25 25 mcg PO QAM 01/13/23 10/05/23 10/05/23 History mcg (1,000 unit) capsule clonidine HCl 0.1 mg tablet 0.1 mg PO TID 01/13/23 10/05/23 10/05/23 History cyanocobalamin (vitamin B-12) 1,000 mcg PO QAM 01/13/23 10/05/23 10/05/23 History 1,000 mcg capsule enalapril maleate 20 mg tablet 20 mg PO BID 01/13/23 10/05/23 10/05/23 History ezetimibe 10 mg tablet 10 mg PO DAILY 01/13/23 10/05/23 10/05/23 History furosemide 40 mg tablet 40 mg PO QAM 01/13/23 10/05/23 10/05/23 History metoprolol succinate 100 mg 100 mg PO DAILY 01/13/23 10/05/23 10/05/23 History tablet,extended release 24 hr multivitamin 1 tab PO QAM 01/13/23 10/05/23 10/05/23 History primidone 50 mg tablet 250 mg PO TID 01/13/23 10/05/23 10/05/23 History tramadol 50 mg tablet 50 mg PO Q8H PRN Pain 01/13/23 10/05/23 Unknown History vitamin K2 45 mcg capsule 45 mcg PO QAM 01/13/23 10/05/23 10/05/23 History zinc gluconate 50 mg tablet 50 mg PO QAM 01/13/23 10/05/23 10/05/23 History hydralazine 100 mg tablet 100 mg PO BID 10/05/23 10/05/23 10/05/23 History levothyroxine 125 mcg tablet 125 mcg PO QAM 10/05/23 10/05/23 10/05/23 History Allergies Allergy/AdvReac Type Severity Reaction Status Date / Time clopidogrel [From Plavix] Allergy Unknown Verified 09/08/23 16:30 ibandronate sodium Allergy Unknown Verified 09/08/23 16:30 [From Boniva] influenza virus vaccine, Allergy Unknown Verified 09/08/23 16:30 live atten lovastatin Allergy Unknown Verified 09/08/23 16:30 metoclopramide [From Reglan] Allergy Unknown Verified 09/08/23 16:30 PFSH Acute 2 PFSH: Medical History Degenerative arthritis Hyperlipidemia History of cancer of vulva History of thyroid cancer History of breast cancer History of melanoma Chronic kidney disease Coronary artery disease Hypertension Surgical History H/O bilateral cataract extraction History of lumbosacral spine surgery History of total knee arthroplasty History of hysterectomy with bilateral oophorectomy (1984) History of removal of implants of both breasts History of vulvectomy (1990) Partial vulvectomy for vulvar cancer History of melanoma excision excision of melanoma from the left cheek History of bilateral mastectomy (12/03/15) Bilateral mastectomy with right axillary lymph node dissection History of thyroidectomy (05/12/18) Total thyroidectomy 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 History of heart bypass surgery Family History Sister Dementia Brother Stroke Mother Stroke CAD (coronary artery disease) Cancer uterine Father Lung disease Family/Other Suicide Grandson Other Hyperlipidemia Hypertension Denies family history of Diabetes Clotting disorder Psychiatric illness Chronic kidney disease (CKD) Anesthesia complication Bleeding disorder Social History Smoking and tobacco/nicotine status: former use of tobacco/nicotine Quit status (tobacco/nicotine): has quit using Year quit tobacco: 1978 Former quit date comment: smoked x 27 years Alcohol intake: former Former alcohol use details: socially Vitals/I&O/Wt Last Vital Signs Temp 98.7 F 10/05/23 14:52 Pulse 116 H 10/05/23 14:52 Resp 16 10/05/23 14:52 BP 179/86 10/05/23 16:10 Pulse Ox 98 10/05/23 14:52 O2 Del Method Room Air 10/05/23 14:52 10/05/23 10/05/23 10/05/23 06:59 14:59 22:59 Intake Total 20 / 20 Balance 20 / 20 Weight last 48 hrs Weight 79.832 kg Physical Exam 2 Narrative: Awake and alert GCS 15 No active chest pain No shortness of breath Nonfocal neuroexam Pleasant cough No signs of edema Doing well on room air Cardene drip Data 10/05/23 16:04 10/05/23 16:04 A&P Assessment and plan (1) Accelerated hypertension: (2) Thyroid cancer: (3) Vulvar cancer: (4) Cancer of right breast: Plan Hypertensive emergency No signs of endorgan damage Start Cardene drip Will request venous Doppler to rule out renal artery stenosis Request T4 TSH cortisol level Patient never had workup for resistant hypertension Patient is not endorsing episodic chest pain facial flushing or diarrhea Admit to ICU's titrate off Cardene drip Cardiac diet Will check renin and plasma level as well Full code [id number] will be medical DPOA if she is not able to make decision, Review of previous records reviewed patient has multiple cancers which are currently remission follows up with Dr. Lr Attestations 2 Medical Necessity Statement*: Anticipating more than 2 midnights for management of hypertensive crisis she will need workup for resistant hypertension Diagnoses Accelerated hypertension I10 Thyroid cancer C73 Vulvar cancer C51.9 Cancer of right breast C50.911
--- NOTE | 2023-10-05 18:28 | USR_ITS ---
PROCEDURE INFORMATION: Exam: US Duplex Artery and Vein of the Abdominal and/or Reproductive Organs, Complete Kidneys Exam date and time: 10/05/2023 6:40 PM Age: 87 years old Clinical indication: Abdominal or pelvic symptoms: HTN crisis; Additional info: HTN crsiss TECHNIQUE: Imaging protocol: Real-time duplex ultrasound scan of the arterial and venous flow with color Doppler flow and spectral waveform analysis with image documentation. Complete duplex exam focused on the kidneys. Duplex exam was performed to evaluate for vascular conditions. COMPARISON: No relevant prior studies available. FINDINGS: Right kidney: Right kidney measures 10.5 cm in length. Renal cortical echogenicity is within normal limits. No hydronephrosis. No masses. Right renal artery: Normal duplex of the renal artery. Duplex waveforms are within normal limits. No hemodynamically significant stenosis. Right interlobar/arcuate arteries: 0.7 Right renal vein: Patent Left kidney: Left kidney measures 11.3 cm in length. Renal cortical echogenicity is within normal limits. No hydronephrosis. No masses. Left renal artery: Normal duplex of the renal artery. Duplex waveforms are within normal limits. No hemodynamically significant stenosis. Left interlobar/arcuate arteries: 0.8 Left renal vein: Patent US/CV renal doppler [id number] IMPRESSION: Normal kidneys. No hemodynamically significant stenosis.
--- NOTE | 2023-10-05 18:33 | USCV_ITS ---
Rolanda Blandon Age: 87 Gender: F : 1935 Exam Date: 10/05/2023 20:03 Ordering Phys: Shay Rick MD Technologist: LAURENT [place]am [place] [facility] [place] [facility] [place] Indication: HTN, s/p CABG 2018. BP: 131 / 68 HR: 90 Rhythm: Sinus Technical Quality: Adequate MEASUREMENTS (Male / Female) Normal Values 2D ECHO LV Diastolic Diameter PLAX 4.0 cm 4.2 - 5.9 / 3.9 - 5.3 cm LV Systolic Diameter PLAX 2.5 cm IVS Diastolic Thickness 1.3 cm 0.6 - 1.0 / 0.6 - 0.9 cm IVS Systolic Thickness 1.7 cm LVPW Diastolic Thickness 1.3 cm 0.6 - 1.0 / 0.6 - 0.9 cm LVPW Systolic Thickness 1.8 cm LVOT Diameter 1.8 cm LV Ejection Fraction 2D Teich 67.0 % LV Ejection Fraction MOD 2C 67.4 % LV Ejection Fraction 2C AL 69.1 % LA Diameter 5.7 cm LA Width 3.9 cm LA Height 6.7 cm RA Width 3.3 cm RA Height 4.8 cm Aorta at Sinotubular Diameter 2.8 cm IVC Diameter 1.0 cm M-MODE Aortic Annulus Diameter 3.1 cm LA Ao Ratio MM 1.9 MV E Point Septal Separation 0.6 cm DOPPLER AV Peak Velocity 173.0 cm/s LVOT Peak Velocity 103.0 cm/s AV Area Cont Eq vti 1.8 cm squared AV Area Cont Eq pk 1.6 cm squared MV Peak Velocity 113.0 cm/s MV Area PHT 3.1 cm squared Mitral E to A Ratio 0.9 MV E' Velocity 39.5 cm/s Mitral E to MV E' Ratio 11.9 Mitral E to LV E' Lateral Ratio 9.4 Mitral E to LV E' Septal Ratio 16.3 TR Peak Velocity 235.0 cm/s TR Peak Gradient 22.1 mmHg TV Peak E Velocity 59.0 cm/s Right Atrial Pressure 10.0 mmHg Pulmonary Artery Systolic Pressu 32.1 mmHg PV Peak Velocity 144.0 cm/s FINDINGS Left Ventricle Left ventricle is normal in size. LV systolic function is normal with EF of 60-65%. No regional wall motion abnormalities are seen. Grade 1 diastolic dysfunction Right Ventricle Normal in size and function Right Atrium Normal in size Left Atrium Dilated Mitral Valve Sturcturally normal mitral valve. Mild mitral regurgitation. Aortic Valve Aortic valve is thickened. No significant stenosis or regurgitation. Tricuspid Valve Mild tricuspid regurgitation. Pulmonary artery systolic pressure is normal Pulmonic Valve Mild to moderate pulmonic regurgitation. Pericardium Normal Aorta Normal in size IVC Appears to be normal CONCLUSIONS LV systolic function is normal with EF of 60-65% Grade 1 diastolic dysfunction Left atrial dilation Mild mitral regurgitation Mild tricuspid regurgitation Mild to moderate pulmonic regurgitation No comparison studies are available Josh Simons MD (Electronically Signed) Final Date: 06 October 2023 12:15 S
[2023-10-05 19:17] LABS: Troponin(5th) Baseline 30 ng/L (0-10)
--- NOTE | 2023-10-05 19:29 | PC.NURSE ---
Per hospitalist orders, Cardizem stopped once bp 130mm. Pts current pressure 114/49. Medication paused.
[2023-10-05 19:56] LABS: Cortisol Random 29.54 ug/dL (2.47-19.5); Free T4 Free Thyroxine 1.81 ng/dL (0.82-1.77); Thyroid Stimulating Hormone 0.17 uIU/mL (0.27-4.20)
[2023-10-05 20:39] LABS: Troponin 5 2HR 61.05 ng/L (0-10)
[2023-10-05 20:46] LABS: Troponin 5 2HR Delta 31.05 ABS# (0-10)
--- NOTE | 2023-10-05 20:59 | ECG_ITS ---
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 Measurements Intervals [place] Rate: 88 P: 81 UT: 168 QRS: -10 QRSD: 86 T: 11 QT: 406 QTc: 493 Interpretive Statements SINUS RHYTHM WITH OCCASIONAL SUPRAVENTRICULAR PREMATURE COMPLEXES POSSIBLE RIGHT VENTRICULAR CONDUCTION DELAY [RSR (QR) IN V1/V2] MODERATE VOLTAGE CRITERIA FOR LVH, CONSIDER NORMAL VARIANT [MEETS CRITERIA IN ONE OF: R(aVL), S(V1), R(V5), R(V5/V6)+S(V1)] POSSIBLE SEPTAL MYOCARDIAL INFARCTION , PROBABLY OLD [30 ms Q WAVE IN V1/V2] Compared to ECG 10/05/2023 16:23:25 Incomplete right bundle-branch block no longer present Myocardial infarct finding still present Electronically Signed On 10-06-2023 11:05:01 [employer] by Josh Simons M.D. [id number] andrea
--- NOTE | 2023-10-05 21:07 | PC.NURSE ---
Carola calhoun restarted d/t systolic pressure at 145mm. Dr Sheikh notified and gave verbal to give pt her po Hydralazine 100mg if she has not had it yet. Hold off on the clonidine for now.
[2023-10-05] MEDS: hyDRALAzine 50 mg Tablet 100 MG PO (21:13)
--- NOTE | 2023-10-05 22:16 | ECG_ITS ---
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 Measurements Intervals [place] Rate: 101 P: 60 PA: 157 QRS: -14 QRSD: 87 T: 17 QT: 389 QTc: 504 Interpretive Statements SINUS TACHYCARDIA WITH FREQUENT SUPRAVENTRICULAR PREMATURE COMPLEXES S1-S2-S3 PATTERN, CONSISTENT WITH PULMONARY DISEASE, RVH, OR NORMAL VARIANT POSSIBLE RIGHT VENTRICULAR CONDUCTION DELAY [RSR (QR) IN V1/V2] MODERATE VOLTAGE CRITERIA FOR LVH, CONSIDER NORMAL VARIANT [MEETS CRITERIA IN ONE OF: R(aVL), S(V1), R(V5), R(V5/V6)+S(V1)] POSSIBLE SEPTAL MYOCARDIAL INFARCTION , PROBABLY OLD [30 ms Q WAVE IN V1/V2] Compared to ECG 10/05/2023 20:59:28 Right ventricular hypertrophy now present Sinus rhythm no longer present Myocardial infarct finding still present Electronically Signed On 10-06-2023 11:07:44 RETAIL PHARMACY MANAGER by Josh Simons M.D. [id number]
[2023-10-06] VITALS (11 sets, daily range): BP systolic 126–174; BP diastolic 54–84; PULSE 69–106; RESP 10–22; TEMP 36.6–37.1; O2SAT 94–98; BMI 32.9; BMI 33.1
--- NOTE | 2023-10-06 00:22 | ECG_ITS ---
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 Measurements Intervals [place] Rate: 101 P: 85 NH: 162 QRS: -13 QRSD: 83 T: 13 QT: 373 QTc: 485 Interpretive Statements SINUS TACHYCARDIA S1-S2-S3 PATTERN, CONSISTENT WITH PULMONARY DISEASE, RVH, OR NORMAL VARIANT POSSIBLE RIGHT VENTRICULAR CONDUCTION DELAY [RSR (QR) IN V1/V2] MODERATE VOLTAGE CRITERIA FOR LVH, CONSIDER NORMAL VARIANT [MEETS CRITERIA IN ONE OF: R(aVL), S(V1), R(V5), R(V5/V6)+S(V1)] Compared to ECG 10/05/2023 22:16:11 Myocardial infarct finding no longer present Electronically Signed On 10-06-2023 11:07:21 WELLNESS NURSE by Josh Simons M.D. [id number] [email or web address]
[2023-10-06 01:10] LABS: Anion Gap 15.1 (5-19); Blood Urea Nitrogen 14 mg/dL (8-23); Calcium 9.1 mg/dL (8.5-10.5); Carbon Dioxide 24 mmol/L (22-29); Chloride 101 mmol/L (98-107); Creatinine Clr Calc Pharmacy 50.3153; Glucose 135 mg/dL (65-115); Magnesium 2.1 mg/dL (1.7-2.3); Osmolality Calculated 285 mOsm/kg (285-295); Potassium 4.1 mmol/L (3.5-5.1); Sodium 136 mmol/L (136-145)
[2023-10-06 01:11] LABS: Troponin 5 6HR 55.67 ng/L (0-10)
[2023-10-06 01:16] LABS: Troponin 5 6HR Delta 25.67 ng/L (0-12)
[2023-10-06] MEDS: acetaminophen 325 mg Tablet 650 MG PO (01:26)
[2023-10-06] MEDS: cloNIDine 0.1 mg Tablet PO (04:08)
--- NOTE | 2023-10-06 04:24 | PC.NURSE ---
patient BP is running 165/89 patient has headache at 7 on 1-10 scale and face is flushed. Dr Sheikh notified and clonidine 0.1 mg was given early.
[2023-10-06] MEDS: levothyroxine 125 mcg Tablet PO (05:53)
[2023-10-06] MEDS: FUROsemide 40 mg Tablet PO (05:53)
[2023-10-06] MEDS: hyDRALAzine 50 mg Tablet 100 MG PO (08:39)
[2023-10-06] MEDS: metoprolol succinate ER (24 HR) 100 mg Tablet PO (08:39)
[2023-10-06 09:13] LABS: D Dimer 1.46 ug/mLFEU (0-0.59)
--- NOTE | 2023-10-06 09:56 | CT_ITS ---
WS: [id number] CT CHEST ANGIOGRAPHY WITH REFORMATS HISTORY: CHEST PAIN TECHNIQUE: Contiguous axial images are obtained through the chest during arterial injection of intrav enous contrast. Images are reconstructed to evaluate the pulmonary arteries. MIP imaging also reviewe d. All CT scans at [facility] use at least one of these dose optimization techniques: automat ed exposure control; mA and/or kV adjustment per patient size (includes targeted exams where dose is matched to clinical indication); or iterative reconstruction. CONTRAST: Omnipaque 350; 63mL IV. DLP: 359.49 mGy.cm COMPARISON: None available. Very good opacification of the pulmonary arteries. No pulmonary emboli or filling defect in the pulmo nary artery. There is mild dilatation of the pulmonary artery. Moderate atherosclerotic disease throu ghout the thoracic aorta. There is calcified and noncalcified plaque with no aneurysm. Heart size is enlarged. Moderate LEFT heart enlargement. No RIGHT heart strain. No mediastinal or hilar adenopathy. Large hiatal hernia. Large portion of the stomach is intrathoracic. No pulmonary mass. There are 2 adjacent 5 mm pulmonary nodules noted in the RIGHT middle lobe, best s een on image 32 of series 4. No mass. No pneumonia. No pericardial or pleural effusions. Prior median sternotomy and CABG. Prior cholecystectomy. Low-attenuation mass posterior LEFT kidney m easures 2.0 cm and probably representing a cyst. Splenic artery calcifications. Hepatic steatosis. Pr ior RIGHT mastectomy. IMPRESSION: 1. No pulmonary embolism. 2. Moderate atherosclerosis thoracic aorta with no aneurysm. 3. No pneumonia. 4. There are two, 5 mm nodules in the RIGHT middle lobe. Recommend follow-up chest CT evaluation in 6 months. 5. Prior median sternotomy and CABG. 6. Prior cholecystectomy. 7. Prior RIGHT mastectomy. 8. Mild cardiomegaly and LEFT heart enlargement. 9. No mediastinal or hilar adenopathy. 10. Large hiatal hernia.
--- NOTE | 2023-10-06 09:56 | PM.DCS ---
Discharge Providers Date of Admission: 10/05/23 18:00 Date of Discharge: October 06, 2023 Attending Provider at Admission: Floresita Pratt MD Attending Provider at Discharge: Shay Rick MD Primary Care Provider: Wiley Middleton MD Diagnoses at Discharge Discharge Diagnosis (1) Accelerated hypertension: Status: Acute (2) Thyroid cancer: Status: Acute (3) Vulvar cancer: Status: Acute (4) Cancer of right breast: Status: Acute Reason for Visit Reason for Visit: headaches, blood pressure Hospital Course Hospital Course 87-year female who carries history of acquired hypothyroidism multiple malignancies currently in remission, very active at baseline, lives alone, 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 She was put on Cardene drip which we were able to titrate off overnight, blood pressure at the time of discharge is 142/71 mg IV, patient is feeling much better, TSH is 0.17 with high free T4 I have asked patient to cut back little bit on her levothyroxine and see if her hypertensive episode would improve she does have acquired hypothyroidism and needs levothyroxine on absolute basis. She has high cortisol level but please note that was checked randomly at 4 PM yesterday at the time of admission. She does not have typical cushingoid appearance. She is not endorsing episodic chest discomfort, diarrhea, facial skin flushing. Renal duplex did not show any sign of renal artery stenosis. Head CT unremarkable. She was complaining of headache with high blood pressure. Patient has had delta troponin, no active chest pain, will give her outpatient stress test referral at the time of discharge I do not see any active signs of infarction or ischemia on current EKG, currently chest pain-free, Considering high cortisol and resistant hypertension I will give her referral to see Dr. Garcia nephrology Physical Exam Narrative: Awake and alert GCS 15 Hemodynamically stable Pleasant and cooperative Nonfocal neuroexam S1, S2 Discharge Data Studies Completed and Pending Completed Studies During Hospitalization Category Date Time Status CT head wo con* [id number] Stat Cat Scan 10/05/23 15:58 Completed XR chest 1V portable [id number] Stat Exams 10/05/23 17:07 Completed US renal doppler [CV renal doppler [id number]] Routine Ultrasound 10/05/23 18:28 Completed Pending at discharge Category Date Time Status CTA PE [CT angio chest PE protcl [id number]] Stat Cat Scan 10/06/23 09:56 Ordered Aldosterone Routine Lab 10/05/23 20:48 Received RENIN [Plasma Renin Activity LC/MS/MS] Routine Lab 10/05/23 19:53 Received CV. echo complete* [id number] Routine Ultrasound 10/05/23 18:33 Taken Radiology Impressions Head CT 10/05/23 15:58 IMPRESSION: No acute intracranial abnormality. Chest X-Ray 10/05/23 17:07 IMPRESSION: No acute findings. Renal Ultrasound 10/05/23 18:28 IMPRESSION: Normal kidneys. No hemodynamically significant stenosis. Laboratory Results WBC 10.56 10^3/uL (3.29-11.43) 10/05/23 16:04 RBC 5.48 10^6/uL (3.85-5.65) 10/05/23 16:04 Hgb 15.80 g/dL (11.27-16.99) 10/05/23 16:04 Hct 47.2 % (36-47) H 10/05/23 16:04 MCV 86.1 fl (85-98) 10/05/23 16:04 MCH 28.8 pg (27-33) 10/05/23 16:04 MCHC 33.5 g/dL (30-55) 10/05/23 16:04 RDW 13.3 % (12.1-15.1) 10/05/23 16:04 Plt Count 341 10^3/cmm (157-399) 10/05/23 16:04 MPV 10.4 fL (7.4-10.4) 10/05/23 16:04 Neut % (Auto) 72.9 % 10/05/23 16:04 Lymph % (Auto) 16.3 % 10/05/23 16:04 [place] % (Auto) 8.5 % 10/05/23 16:04 Eos % (Auto) 0.9 % 10/05/23 16:04 Baso % (Auto) 0.7 % 10/05/23 16:04 Neut # (Auto) 7.71 10^3/uL (1.8-7.7) H 10/05/23 16:04 Lymph # (Auto) 1.7 10^3/uL (0.8-4.8) 10/05/23 16:04 [place] # (Auto) 0.9 10^3/uL (0.2-0.9) 10/05/23 16:04 Eos # (Auto) 0.1 10^3/uL (0.0-0.8) 10/05/23 16:04 Baso # (Auto) 0.1 10^3/uL (0.0-0.1) 10/05/23 16:04 Nucleated RBC % (auto) 0 % 10/05/23 16:04 Nucleated RBCs # 0.0 /100WBC 10/05/23 16:04 D-Dimer 1.46 ug/mLFEU (0-0.59) H 10/06/23 08:43 Sodium 136 mmol/L (136-145) 10/06/23 00:50 Potassium 4.1 mmol/L (3.5-5.1) 10/06/23 00:50 Chloride 101 mmol/L (98-107) 10/06/23 00:50 Carbon Dioxide 24 mmol/L (22-29) 10/06/23 00:50 Anion Gap 15.1 (5-19) 10/06/23 00:50 BUN 14 mg/dL (8-23) 10/06/23 00:50 Creatinine 0.6 mg/dL (0.5-0.9) 10/06/23 00:50 GFR Calculation Not Reportable 10/06/23 00:50 Glucose 135 mg/dL (65-115) H 10/06/23 00:50 Calculated Osmolality 285 mOsm/kg (285-295) 10/06/23 00:50 Calcium 9.1 mg/dL (8.5-10.5) 10/06/23 00:50 Magnesium 2.1 mg/dL (1.7-2.3) 10/06/23 00:50 Total Bilirubin 0.3 mg/dL (0.15-1.2) 10/05/23 16:04 AST 21 U/L (0-32) 10/05/23 16:04 ALT 19 U/L (0-33) 10/05/23 16:04 Alkaline Phosphatase 117 U/L (35-105) H 10/05/23 16:04 Troponin T Baseline 30 ng/L (0-10) H 10/05/23 16:04 Troponin T 120 Minute 61.05 ng/L (0-10) H 10/05/23 19:53 Delta Troponin T 31.05 ABS# (0-10) H* 10/05/23 19:53 Troponin T Hi Sens 6Hr 55.67 ng/L (0-10) H 10/06/23 00:50 Troponin T Hi Sens 6Hr Delta 25.67 ng/L (0-12) H* 10/06/23 00:50 Total Protein 7.9 g/dL (6.6-8.7) 10/05/23 16:04 Albumin 4.1 g/dL (3.5-5.2) 10/05/23 16:04 Globulin 3.8 g/dL (1.3-4.6) 10/05/23 16:04 TSH 0.17 uIU/mL (0.27-4.20) L 10/05/23 16:04 Free T4 1.81 ng/dL (0.82-1.77) H 10/05/23 16:04 Random Cortisol 29.54 ug/dL (2.47-19.5) H 10/05/23 16:04 Urine Color Yellow (Yellow) 10/05/23 15:48 Urine Appearance Clear (CLEAR) 10/05/23 15:48 Urine pH 6 (5-7) 10/05/23 15:48 Ur Specific [place] 1.020 (1.005-1.030) 10/05/23 15:48 Urine Protein 1+ (Negative) H 10/05/23 15:48 Urine Glucose (UA) Norm (Normal) 10/05/23 15:48 Urine Ketones Negative (Negative) 10/05/23 15:48 Urine Blood Neg (Negative) 10/05/23 15:48 Urine Nitrate Negative (Negative) 10/05/23 15:48 Urine Bilirubin Neg (Negative) 10/05/23 15:48 Urine Urobilinogen Norm mg/dL (Negative) 10/05/23 15:48 Ur Leukocyte Esterase 1+ (Negative) H 10/05/23 15:48 Urine RBC 0-4 /hpf (0-2) H 10/05/23 15:48 Urine WBC 5-10 /hpf (0-5) H 10/05/23 15:48 Ur Squamous Epith Cells 0-4 /hpf (0-5) H 10/05/23 15:48 Amorphous Sediment Trace /hpf 10/05/23 15:48 Urine Bacteria Trace /hpf (NONE) 10/05/23 15:48 Hyaline Casts 0-4 /lpf H 10/05/23 15:48 Urine Mucus 1+ /hpf 10/05/23 15:48 Vitals Last Vital Signs Temp 98.7 F 10/06/23 07:26 Pulse 89 10/06/23 08:39 Resp 16 10/06/23 08:39 BP 142/71 10/06/23 07:26 Pulse Ox 97 10/06/23 08:39 O2 Del Method Room Air 10/06/23 08:39 Discharge Plan Discharge Patient Disposition: Home Condition: Stable Prescriptions: New isosorbide mononitrate 30 mg tablet extended release 24 hr 30 mg PO DAILY Qty: 60 4RF Continued zinc gluconate 50 mg tablet 50 mg PO QAM vitamin K2 45 mcg capsule 45 mcg PO QAM cholecalciferol (vitamin D3) 25 mcg (1,000 unit) capsule 25 mcg PO QAM ascorbic acid (vitamin C) 1,000 mg tablet 1,000 mg PO QAM cyanocobalamin (vitamin B-12) 1,000 mcg capsule 1,000 mcg PO QAM tramadol 50 mg tablet 50 mg PO Q8H PRN (Reason: Pain) multivitamin Tablet 1 tab PO QAM primidone 50 mg tablet 250 mg PO TID furosemide 40 mg tablet 40 mg PO QAM ezetimibe 10 mg tablet 10 mg PO DAILY clonidine HCl 0.1 mg tablet 0.1 mg PO TID aspirin [Rosy Low Dose Aspirin] 81 mg tablet,delayed release (DR/EC) 81 mg PO QPM enalapril maleate 20 mg tablet 20 mg PO BID Qty: 60 0RF metoprolol succinate 100 mg tablet extended release 24 hr 100 mg PO DAILY Qty: 30 0RF hydralazine 100 mg tablet 100 mg PO BID Qty: 60 0RF Changed levothyroxine 125 mcg tablet 112 mcg PO QAM Qty: 30 0RF Discharge Orders: Discharge Order (Routine); Ordered 10/06/23 Ordered By: Shay Rick Other Ambulatory Orders: NM jeremie perf SPECT r/s* [id number] (Routine) Timeframe: 1 Week Facility: [facility] - Location: Radiology Ordered By: Shay Rick Referrals: Wiley Middleton MD [Primary Care Provider] - Chiquita Garcia MD [Referring] - 4-7 days Patient Instructions: Opioid Safety Discharge Attestations Time Spent in Discharge Care*: greater than 30 min Quality Metrics Clinical Quality Measures [ No reported AMI, CVA or VTE this stay] Coding Level of Care Code Acute Code for Chg Fwd Diagnoses Accelerated hypertension I10 Thyroid cancer C73 Vulvar cancer C51.9 Cancer of right breast C50.911
[2023-10-06] MEDS: iohexol 350 mg/mL 500 mL Btl (per mL) IV (11:06)
--- NOTE | 2023-10-06 14:03 | PC.NURSE ---
Discharge Note Patient discharged to home via POV accompanied by family. 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 Mobile pharmacy medications and/or prescriptions provided. Belongings/home medications returned.
[2023-10-10 21:00] LABS: Plasma Renin Activity LC/MS/MS 7.98 ng/mL/h (0.25-5.82)
== END 2023-10-06 12:00 | disposition home or self-care (01) ==
LOC: ER 15:55 → ER IP 18:11 → CSU 10-06 01:23
PROVIDERS: Admitting Provider Internal Medicine; Emergency Provider Family Medicine; PCP Family Medicine; Visit Provider Internal Medicine
DX: I16.1 Hypertensive emergency (principal); C73 Malignant neoplasm of thyroid gland; C51.9 Malignant neoplasm of vulva, unspecified; C50.911 Malignant neoplasm of unspecified site of right female breast; E03.9 Hypothyroidism, unspecified; Z90.11 Acquired absence of right breast and nipple; E78.5 Hyperlipidemia, unspecified; I12.9 Hypertensive chronic kidney disease with stage 1 through stage 4 chronic kidney disease, or unspecified chronic kidney disease; N18.9 Chronic kidney disease, unspecified; Z87.891 Personal history of nicotine dependence; M19.90 Unspecified osteoarthritis, unspecified site
CPT/HCPCS: 36415; 70450; 71045; 71275; 80048; 80053; 81001; 82088; 82533; 83735; 84244; 84439; 84443; 84484; 85025; 85378; 93005; 93306; 93975; 96365; 96366; 96375; 96376; 99285; G0378; J0360; J3490; Q9967

== ENCOUNTER 2023-10-24 08:20 | Outpatient (CLI) | payer MEDICARE, SELFPAY ==
--- NOTE | 2023-10-24 09:00 | NMCV_ITS ---
NM jeremie perf SPECT r/s* [id number] Rolanda Blandon Age: 87 Gender: F : 1935 Exam Date: 10/24/2023 09:00 Ordering Phys: Shay Rick MD Technologist: ANN MARIE Lindo Exam Location: [facility] Indications: MALIGNANT HYPERTENSION STRESS TEST Please [facility] IMAGE PROTOCOL Rest/Stress 1 Lexiscan Day Radiopharmaceutical Dose (mCi) Administration Site Administered by Rest: Tc-99m 10.4 IV ANN MARIE Long Sestamibi Stress:Tc-99m 32.8 IV ANN MARIE Long Sestamibi Rest: 24-Oct-2023 60 Discovery 630 Stress: 24-Oct-2023 30 Discovery 630 0.4mg Lexiscan. Images obtained in supine and prone position. SPECT RESULTS Technical Quality: Excellent Raw Data Analysis: Normal Image Corrections: No attenuation or motion correction applied Summed Stress Score: 10 Summed Rest Score: 0 Summed Difference Score: 10 PERFUSION FINDINGS Large sized area of reversible perfusion defect noted in the inferior and inferolateral jaramillo. This is consistent with large sized area of ischemia in the RCA and Left circumflex artery territories. FUNCTIONAL RESULTS (calculated via Gated SPECT) Stress Image LV EF (%): 66 Stress EDV (mL):98 TID: 0.98 Stress ESV (mL):33 FUNCTIONAL FINDINGS: There is normal left ventricular systolic function. IMPRESSIONS 1. Large area of ischemia is seen in the RCA and left circumflex artery territories 2. LV systolic function is normal Josh Simons MD (Electronically Signed) Final Date: 24 October 2023 11:52 S
[2023-10-24 09:09] VITALS: BMI 32.5
--- NOTE | 2023-10-24 09:09 | ECG_ITS ---
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 Interpretive Statements NAME OF STUDY: LEXISCAN SESTAMIBI STRESS TEST INDICATION: [Unstable Angina] Procedure: At the baseline, the blood pressure was 171/85 mmHg with a heart rate of 55 bpm. The electrocardiogram showed sinus bradycardia, incomplete right bundle branch block with normal ST and T's. The Lexiscan was infused over a period of 20 seconds. A total of 0.4 mg of Lexiscan was infused. The stress phase was continued for a total of 5 minutes. Heart rate was at the end of stress phase was 76 bpm and a blood pressure of 149/64 mmHg. The EKG at the peak infusion revealed normal sinus rhythm with no significant ST-T wave changes. Sestamibi was injected 20 seconds after the Lexiscan infusion. Blood pressure at the end of recovery phase was 149/70 mmHg with a heart rate of 75 bpm. Conclusion: 1. Normal EKG response to Lexiscan infusion 2. No Lexiscan induced chest pain or cardiac arrhythmia. 3. Normal blood pressure and heart rate response. 4. Sestamibi/sestamibi perfusion scan pending; see separate report. Electronically Signed On 11-11-2023 11:19:59 MATERIALS SCIENTIST by Josh Simons M.D. [id number]
[2023-10-24] MEDS: regadenoson 0.4 Mg/5 ml Syringe IVP (10:17)
[2023-10-24 10:44] VITALS: BP 111/72; PULSE 72
== END 2023-10-24 08:21 | disposition home or self-care (01) ==
PROVIDERS: PCP Family Medicine; Visit Provider Internal Medicine
DX: I20.0 Unstable angina (principal); I25.9 Chronic ischemic heart disease, unspecified; I11.9 Hypertensive heart disease without heart failure
CPT/HCPCS: 36415; 78452; 93017; 96374; A9500; J2785

== ENCOUNTER → 2023-10-26 12:35 | Outpatient (BNVA) | payer MEDICARE, SELFPAY | PROVIDERS: PCP Family Medicine; Visit Provider Dermatology | DX: L82.1 Other seborrheic keratosis (principal); D23.62 Other benign neoplasm of skin of left upper limb, including shoulder; Q82.5 Congenital non-neoplastic nevus; Z85.828 Personal history of other malignant neoplasm of skin; L57.0 Actinic keratosis; D22.5 Melanocytic nevi of trunk; D22.71 Melanocytic nevi of right lower limb, including hip | CPT/HCPCS: 17000; 99203 ==

== ENCOUNTER 2023-10-31 11:59 | Outpatient (CLI) | payer MEDICARE, SELFPAY ==
--- NOTE | 2023-10-31 12:10 | CT_ITS ---
WS: [id number] CT chest wo con [id number] HISTORY: MULTIPLE NODULES OF LUNG TECHNIQUE: Axial imaging performed through the thorax. Coronal and sagittal reformats are submitted. All CT scans at [facility] use at least one of these dose optimization techniques: automated exposure control; mA and/or kV adjustment per patient size (includes targeted exams where dose is mat ched to clinical indication); or iterative reconstruction. CONTRAST: No DLP: 369.84 mGy.cm COMPARISON: 10/06/2023 Lungs and central airway: Reidentified are 5 mm nodules in the RIGHT middle lobe which are unchanged since 10/06/2023. There is a tiny pleural tag in the anterior RIGHT upper lobe. No new mass or nodule. Pleura: Normal. No pleural effusion. Heart and pericardium: Mild cardiomegaly. Mediastinum and monty: No mediastinum or hilar adenopathy. Vessels: Heavy calcification of the thoracic aorta. Mildly enlarged pulmonary artery. Chest wall and lower neck: Median sternotomy and prior CABG. Prior RIGHT mastectomy. Upper abdomen: Prior cholecystectomy. No adrenal mass. Moderate size hiatal hernia. Hepatic steatosis . Reidentified is a partially visualized low-attenuation mass in the LEFT kidney at 1.8 cm. Osseous structures: Increase in thoracic kyphosis. Curvature. IMPRESSION: 1. Previously described 5 mm nodules in the RIGHT middle lobe have not changed since 10/06/2023. Vitor mmend 6-month chest CT follow-up to document any change. 2. No adenopathy. 3. Prior RIGHT mastectomy.
== END 2023-10-31 12:00 | disposition home or self-care (01) ==
LOC: RAD 12:00
PROVIDERS: PCP Family Medicine; Visit Provider Family Medicine
DX: R91.8 Other nonspecific abnormal finding of lung field (principal)
CPT/HCPCS: 71250

== ENCOUNTER 2024-03-15 15:15 | Oncology outpatient (recurring) (ONCR) | payer MEDICARE, SELFPAY ==
[2024-02-29 16:30] LABS: Basophils # 0.1 10^3/uL (0.0-0.1); Basophils % 0.8 %; Eosinophils # 0.2 10^3/uL (0.0-0.8); Eosinophils % 2.2 %; Hematocrit 42.9 % (36-47); Lymphocytes # 1.9 10^3/uL (0.8-4.8); Lymphocytes % 21.9 %; Mean Corpuscular HGB Conc 33.6 g/dL (30-55); Mean Corpuscular Hemoglobin 29.1 pg (27-33); Mean Corpuscular Volume 86.8 fl (85-98); Mean Platelet Volume 9.8 fL (7.4-10.4); Monocytes % 11.5 %; Neutrophils # 5.47 10^3/uL (1.8-7.7); Neutrophils % 63.3 %; Nucleated Red Blood Cells % 0 %; Platelet Count 306 10^3/cmm (157-399); Red Blood Count 4.94 10^6/uL (3.85-5.65); Red Cell Distribution Width 15.2 % (12.1-15.1); White Blood Count 8.64 10^3/uL (3.29-11.43)
[2024-02-29 17:07] LABS: Alanine Aminotransferase 18 U/L (0-33); Albumin Level 4.1 g/dL (3.5-5.2); Alkaline Phosphatase 95 U/L (35-105); Anion Gap 15.7 (5-19); Aspartate Amino Transferase 18 U/L (0-32); Blood Urea Nitrogen 19 mg/dL (8-23); CA 15-3 23.9 U/mL (0-25); Calcium 9.2 mg/dL (8.5-10.5); Carbon Dioxide 25 mmol/L (22-29); Chloride 104 mmol/L (98-107); Globulin 2.9 g/dL (1.3-4.6); Glucose 93 mg/dL (65-115); Osmolality Calculated 292 mOsm/kg (285-295); Potassium 4.7 mmol/L (3.5-5.1); Sodium 140 mmol/L (136-145); Total Bilirubin 0.2 mg/dL (0.15-1.2)
[2024-02-29 18:07] LABS: Thyroid Stimulating Hormone 18.57 uIU/mL (0.27-4.20)
[2024-02-29 22:12] LABS: Free T4 Free Thyroxine 1.38 ng/dL (0.82-1.77)
--- NOTE | 2024-03-15 09:43 | CTR_ITS ---
PROCEDURE INFORMATION: Exam: CT Chest With Contrast; Diagnostic Exam date and time: 03/15/2024 3:17 PM Age: 88 years old Clinical indication: Condition or disease; Other: Breast, thyroid, vulva, skin cancer; Prior surgery; Surgery date: 6+ months; Surgery type: Heart, breast, appy, hyst, gb, vulva; Additional info: Multiple malignancies TECHNIQUE: Imaging protocol: Diagnostic computed tomography of the chest with contrast. Radiation optimization: All CT scans at this facility use at least one of these dose optimization techniques: automated exposure control; mA and/or kV adjustment per patient size (includes targeted exams where dose is matched to clinical indication); or iterative reconstruction. Contrast material: [id number]; Contrast volume: 100 ml; Contrast route: INTRAVENOUS (IV); COMPARISON: CT chest [facility] [id number] 10/31/2023 12:26 PM RADIATION DOSE METRICS: Total DLP (mGy-cm): 919.94 FINDINGS: Lungs: No focal consolidation. No suspicious pulmonary nodules or masses. Pleural spaces: No pleural effusion. No pneumothorax. Heart: Heart is normal in size. No pericardial effusion. Lymph nodes: No pathologically enlarged lymphadenopathy. Vasculature: Calcific disease of the thoracic aorta. No thoracic aortic aneurysm. No evidence of aortic dissection. No evidence of pulmonary artery thromboembolism. Diaphragm: Moderate-sized hiatal hernia, unchanged. Bones/joints: Postsurgical changes of prior median sternotomy. Multilevel thoracic spondylosis. Soft tissues: Surgical clips project about the right axilla. Visualized superficial soft tissues are within normal limits. PROCEDURE INFORMATION: Exam: CT Abdomen And Pelvis With Contrast Exam date and time: 03/15/2024 3:17 PM Age: 88 years old Clinical indication: Condition or disease; Other: Breast, thyroid, vulva, skin cancer; Prior surgery; Surgery date: 6+ months; Surgery type: Heart, breast, appy, hyst, gb, vulva; Additional info: Multiple malignancies TECHNIQUE: Imaging protocol: Computed tomography of the abdomen and pelvis with contrast. Radiation optimization: All CT scans at this facility use at least one of these dose optimization techniques: automated exposure control; mA and/or kV adjustment per patient size (includes targeted exams where dose is matched to clinical indication); or iterative reconstruction. Contrast material: [id number]; Contrast volume: 100 ml; Contrast route: INTRAVENOUS (IV); COMPARISON: CT chest [facility] 10023 10/31/2023 12:26 PM RADIATION DOSE METRICS: Total DLP (mGy-cm): 919.94 FINDINGS: Diaphragm: Moderate-sized hiatal hernia, unchanged. Liver: No suspicious hepatic masses. Gallbladder and biliary ducts: Status post cholecystectomy. No significant biliary ductal dilation. Pancreas: Mild atrophy of the pancreas. No pancreatic ductal dilation. Spleen: The spleen is unremarkable. Adrenal glands: The adrenal glands are unremarkable. Kidneys and ureters: Mild bilateral renal atrophy. Left renal cysts measuring up to 2.1 cm. No hydronephrosis or hydroureter. No large renal stones. Stomach and bowel: Moderate sigmoid diverticulosis. No CT evidence of acute diverticulitis. Nonobstructive bowel-gas pattern. Appendix: No evidence of acute appendicitis. Intraperitoneal space: No significant free fluid in the abdomen or pelvis. Vasculature: Moderate calcific disease of the abdominal aorta and its major branches. No abdominal aortic aneurysm. Lymph nodes: No pathologically enlarged lymphadenopathy. Urinary bladder: Urinary bladder is within normal limits. Reproductive: Uterus is absent. Bones/joints: Multilevel spondylosis. Chronic appearing grade 1 anterolisthesis of L5 on S1. Moderate to severe discogenic degenerative changes at L3-L4 and at L5-S1. 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 Soft tissues: Mild fatty atrophy of the paraspinal musculature. CT/CT chest abdpel w/*[id number] IMPRESSION: 1. No acute findings in the chest. 2. Moderate-sized hiatal hernia, unchanged. IMPRESSION: 1. No acute findings in the abdomen/pelvis. 2. Moderate-sized hiatal hernia, unchanged. COMMENTS: Consistent with the [employer]'s Incidental Findings Committee white paper (J Am Burak Radiol 2018): Any incidental renal lesion less than 1 cm or classified as too small to characterize, or any incidental cystic renal lesion characterized as simple-appearing, is likely benign. No follow-up imaging is recommended for these lesions per consensus recommendations based on imaging criteria.
[2024-03-15] MEDS: iohexol 350 mg/mL 500 mL Btl (per mL) PO (15:23)
[2024-03-15] MEDS: iohexol 350 mg/mL 500 mL Btl (per mL) IV (15:24)
== END 2024-03-18 23:59 | disposition home or self-care (01) ==
LOC: RAD 03-16 → ONCMED 04-03 06:17
PROVIDERS: PCP Family Medicine; Visit Provider Internal Medicine
DX: Z53.9 Procedure and treatment not carried out, unspecified reason (principal); C80.0 Disseminated malignant neoplasm, unspecified; K44.9 Diaphragmatic hernia without obstruction or gangrene
CPT/HCPCS: 71260; 74177; 80053; 84439; 84443; 85025; 86300; 99213; Q9967

== ENCOUNTER 2024-05-01 09:05 | Outpatient (CLI) | payer MEDICARE, SELFPAY ==
--- NOTE | 2024-05-01 09:08 | CT_ITS ---
WS: [id number] CT chest wo con [id number] HISTORY: MULTIPLE NODULES OF LUNG TECHNIQUE: Axial imaging performed through the thorax. Coronal and sagittal reformats are submitted. All CT scans at [facility] use at least one of these dose optimization techniques: automated exposure control; mA and/or kV adjustment per patient size (includes targeted exams where dose is mat ched to clinical indication); or iterative reconstruction. CONTRAST: Omnipaque 350; 100 mL IV. DLP: 384.00 mGy.cm COMPARISON: 10/06/2023, 10/31/2023, 03/15/2024 Lungs and central airway: Pleural tag anterior RIGHT upper lobe. Reidentified are the subcentimeter n odules in the RIGHT middle lobe with the largest being slightly spiculated measuring 8 x 5 mm. There is a smaller 5 mm nodule also in the RIGHT middle lobe. These nodules have not significantly changed in size since 10/06/2023. No new nodules. No pneumonia. Pleura: Normal. No pleural effusion. Heart and pericardium: Moderate cardiomegaly. No effusion. Mediastinum and monty: No mediastinum or hilar adenopathy. Vessels: Moderate atherosclerosis aorta. Chest wall and lower neck: Prior CABG. Bilateral mastectomies. Upper abdomen: Large hiatal hernia. No adrenal mass. Prior cholecystectomy. Moderate suprarenal aorti c calcification. Osseous structures: Increase in thoracic kyphosis and mild scoliosis. Moderate spondylitic disease. CT/CT chest wo con [id number] IMPRESSION: 1. Stable RIGHT middle lobe subcentimeter pulmonary nodules since 10/06/2023. R ecommend additional 6-month chest CT follow-up. 2. No mediastinal or hilar adenopathy. 3. Large hiatal hernia. 4. Prior cholecystectomy. 5. Moderate atherosclerotic plaque within the thoracic aorta and suprarenal ab dominal aorta. 6. Bilateral mastectomies.
== END 2024-05-01 09:06 | disposition home or self-care (01) ==
PROVIDERS: PCP Family Medicine; Visit Provider Family Medicine
DX: R91.8 Other nonspecific abnormal finding of lung field (principal); I51.7 Cardiomegaly; I70.0 Atherosclerosis of aorta; Z95.9 Presence of cardiac and vascular implant and graft, unspecified; K44.9 Diaphragmatic hernia without obstruction or gangrene; Z90.49 Acquired absence of other specified parts of digestive tract; I71.40 Abdominal aortic aneurysm, without rupture, unspecified; Z90.13 Acquired absence of bilateral breasts and nipples
CPT/HCPCS: 71250

== ENCOUNTER → 2024-05-28 14:23 | Outpatient (BNVA) | payer MEDICARE, SELFPAY | PROVIDERS: PCP Family Medicine; Visit Provider Nurse Practitioner Family | DX: L57.0 Actinic keratosis (principal); L82.0 Inflamed seborrheic keratosis; D18.01 Hemangioma of skin and subcutaneous tissue; L81.4 Other melanin hyperpigmentation; L21.8 Other seborrheic dermatitis; D23.62 Other benign neoplasm of skin of left upper limb, including shoulder; Z85.828 Personal history of other malignant neoplasm of skin | CPT/HCPCS: 17000; 17110; 99213 ==

== ENCOUNTER 2024-06-11 09:15 | Oncology outpatient (recurring) (ONCR) | payer MEDICARE, SELFPAY ==
--- NOTE | 2024-06-11 10:58 | ECG_ITS ---
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 Measurements Intervals [place] Rate: 95 P: 0 TX: 0 QRS: 36 QRSD: 86 T: 13 QT: 361 QTc: 454 Interpretive Statements ATRIAL FLUTTER/TACHYCARDIA POSSIBLE RIGHT VENTRICULAR CONDUCTION DELAY [RSR (QR) IN V1/V2] NONSPECIFIC T-WAVE ABNORMALITY ABNORMAL RHYTHM ECG Compared to ECG 10/06/2023 00:22:20 T-wave abnormality now present Sinus tachycardia no longer present Right ventricular hypertrophy no longer present Electronically Signed On 06-11-2024 23:37:10 CDT by Kristian Velasquez M.D. [id number]
== END 2024-06-18 23:59 | disposition home or self-care (01) ==
PROVIDERS: PCP Family Medicine; Visit Provider Internal Medicine
DX: C80.0 Disseminated malignant neoplasm, unspecified (principal); C43.39 Malignant melanoma of other parts of face; Z85.3 Personal history of malignant neoplasm of breast; R53.83 Other fatigue; Z79.899 Other long term (current) drug therapy
CPT/HCPCS: 93005; 99214

== ENCOUNTER 2024-07-30 10:29 | Outpatient (CLI) | payer MEDICARE, SELFPAY ==
--- NOTE | 2024-07-30 10:31 | USCV_ITS ---
Rolanda Blandon Age: 88 Gender: F : 1935 Exam Date: 07/30/2024 10:53 Ordering Phys: Wiley Middleton MD Technologist: CT Exam Location: [facility] – [place]_ Indication: atrial flutter BP: 134 / 84 HR: 82 Rhythm: Sinus Technical Quality: Adequate MEASUREMENTS (Male / Female) Normal Values 2D ECHO LVOT Diameter 2.1 cm LV Ejection Fraction MOD 4C 39.4 % LV Ejection Fraction MOD 2C 44.4 % LV Ejection Fraction 2C AL 45.0 % LA Diameter 6.1 cm RA Systolic Volume 4C AL 83.1 ml RA Systolic Volume 4C MOD 81.1 ml LA Sys Volume AL 71.6 cm cubed LA Sys Volume Index AL 36.6 cm cubed/m squared Aorta at Sinotubular Diameter 2.0 cm IVC Diameter 2.4 cm M-MODE LA Ao Ratio MM 2.0 AV Cusp Separation MM 1.0 cm DOPPLER AV Peak Velocity 156.0 cm/s LVOT Peak Velocity 59.0 cm/s AV Area Cont Eq vti 1.3 cm squared AV Area Cont Eq pk 1.3 cm squared MV Peak Velocity 124.0 cm/s MV Area PHT 5.3 cm squared TV Peak Velocity 308.0 cm/s TR Peak Velocity 311.5 cm/s TR Peak Gradient 38.8 mmHg TR Mean Velocity 200.0 cm/s TR Mean Gradient 18.2 mmHg TR Velocity Time Integral 90.1 cm TV Peak E Velocity 89.0 cm/s Right Atrial Pressure 3.0 mmHg Pulmonary Artery Systolic Pressu 41.8 mmHg PV Peak Velocity 84.5 cm/s FINDINGS Left Ventricle Mildly increased left ventricular cavity size. Mildly decreased left ventricular systolic function. Global left ventricular hypokinesis. Left ventricular ejection fraction is estimated at 45-50 %. Grade II/IV diastolic dysfunction, moderately elevated filling pressures. Right Ventricle Moderately increased right ventricular size. Mild pulmonary hypertension, RVSP 41.8 mmHg. Right Atrium Severely increased right atrial size. Left Atrium Severely increased left atrial size. Mitral Valve Moderately thickened mitral valve. No mitral valve stenosis. Moderate-severe mitral valve regurgitation. Aortic Valve Severe aortic valve calcification. Moderate aortic valve stenosis, mean gradient 5.5 mmHg, JESE 1.3 cm squared. Trace aortic valve regurgitation. Tricuspid Valve Moderate tricuspid valve regurgitation. Pulmonic Valve Mild pulmonary valve regurgitation. Pericardium Normal pericardium without effusion. Aorta Normal ascending aorta dimension. IVC The inferior vena cava appears normal. CONCLUSIONS Mildly increased left ventricular cavity size. Mildly decreased left ventricular systolic function. Global left ventricular hypokinesis. Left ventricular ejection fraction is estimated at 50 %. Grade II/IV diastolic dysfunction, moderately elevated filling pressures. Moderately increased right ventricular size. Mild pulmonary hypertension, RVSP 41.8 mmHg. Bilateral severe enlargement. Moderately thickened mitral valve. No mitral valve stenosis. Moderate-severe mitral valve regurgitation. Severe aortic valve calcification. Moderate aortic valve stenosis, mean gradient 5.5 mmHg, JESE 1.3 cm squared. Trace aortic valve regurgitation. Moderate tricuspid valve regurgitation. Right atrial pressure is around 10 mm of mercury. Shay Harris MD (Electronically Signed) Final Date: 30 July 2024 19:21 S
== END 2024-07-30 10:30 | disposition home or self-care (01) ==
LOC: RAD 10:30
PROVIDERS: PCP Family Medicine; Visit Provider Family Medicine
DX: I50.1 Left ventricular failure, unspecified (principal); I50.30 Unspecified diastolic (congestive) heart failure; I51.7 Cardiomegaly; I34.0 Nonrheumatic mitral (valve) insufficiency; I34.81 Nonrheumatic mitral (valve) annulus calcification; I35.0 Nonrheumatic aortic (valve) stenosis; I36.1 Nonrheumatic tricuspid (valve) insufficiency; I48.92 Unspecified atrial flutter
CPT/HCPCS: 93306

== ENCOUNTER → 2024-09-03 16:09 | Outpatient (BNVA) | payer MEDICARE, SELFPAY | PROVIDERS: PCP Family Medicine; Visit Provider Internal Medicine Cardiovascular Disease | DX: I65.23 Occlusion and stenosis of bilateral carotid arteries (principal); R93.1 Abnormal findings on diagnostic imaging of heart and coronary circulation; R06.02 Shortness of breath; Z79.01 Long term (current) use of anticoagulants; I25.118 Atherosclerotic heart disease of native coronary artery with other forms of angina pectoris; I48.91 Unspecified atrial fibrillation; R07.9 Chest pain, unspecified; R53.1 Weakness | CPT/HCPCS: 93005; 99205 ==

== ENCOUNTER 2024-09-06 06:43 | Oncology outpatient (recurring) (ONCR) | payer MEDICARE, SELFPAY ==
--- NOTE | 2024-09-06 07:15 | USCV_ITS ---
Rolanda Blandon Age: 88 Gender: F : 1935 Exam Date: 09/06/2024 07:00 Ordering Phys: Kristian Velasquez MD Technologist: USR Exam Location: [facility] [place] Indication: stenosis. hx of endarterectomy Risk Factors: Previous Vascular Surgery: Right Brachial BP: / Left Brachial BP: / Right Left Velocity (cm/s) Spectral Plaque Velocity (cm/s) Spectral Plaque Syst/Diast Broadening Syst/Diast Broadening 82.80/ 18.00 Prox CCA 140.20/ 23.00 96.80/ 17.10 Mid CCA 79.60 / 14.90 69.00/ 13.30 Distal CCA 129.00/ 18.80 71.40/ 8.30 Prox ICA 70.30 / 21.50 63.50/ 21.50 Mid ICA 61.30 / 19.60 69.00/ 29.10 Distal ICA 78.20 / 25.10 107.30 ECA 68.50 1.00 ICA/CCA 0.50 Antegrade Vertebral Antegrade 87.70/ 27.80 cm/s 106.3/ 26.80 cm/s 0 Tri Subclavian Tri 58.50 258.5 0 CONCLUSIONS Right ICA stenosis <50%. Moderate atheromatous plaque right carotid bulb/ICA. Left ICA stenosis <50%. Moderate atheromatous plaque left carotid bulb/ICA. Dense atheromatous plaque Left greater than right Proximal and Mid CCA's Normal antegrade Doppler flow noted in the right vertebral artery. Normal antegrade Doppler flow noted in the left vertebral artery. Steve Andujar MD (Electronically Signed) Final Date: 06 September 2024 11:11 S
== END 2024-09-18 23:59 | disposition home or self-care (01) ==
LOC: RAD 06:47 → ONCMED 09:38
PROVIDERS: PCP Family Medicine; Visit Provider Internal Medicine Cardiovascular Disease
DX: C80.0 Disseminated malignant neoplasm, unspecified (principal); C43.39 Malignant melanoma of other parts of face; Z85.3 Personal history of malignant neoplasm of breast; R53.83 Other fatigue; Z79.899 Other long term (current) drug therapy; I49.9 Cardiac arrhythmia, unspecified; I65.23 Occlusion and stenosis of bilateral carotid arteries
CPT/HCPCS: 93880

== ENCOUNTER 2024-10-26 10:39 | Outpatient (CLI) | payer MEDICARE, SELFPAY ==
[2024-10-26 11:18] LABS: Basophils # 0.1 10^3/uL (0.0-0.1); Basophils % 0.7 %; Eosinophils # 0.2 10^3/uL (0.0-0.8); Eosinophils % 2.3 %; Hematocrit 40.8 % (36-47); Lymphocytes # 1.2 10^3/uL (0.8-4.8); Mean Corpuscular HGB Conc 32.8 g/dL (30-55); Mean Corpuscular Hemoglobin 28.8 pg (27-33); Mean Corpuscular Volume 87.6 fl (85-98); Mean Platelet Volume 10.5 fL (7.4-10.4); Monocytes # 0.7 10^3/uL (0.2-0.9); Monocytes % 8.8 %; Neutrophils # 6.11 10^3/uL (1.8-7.7); Nucleated Red Blood Cells % 0 %; Platelet Count 316 10^3/cmm (157-399); Red Blood Count 4.66 10^6/uL (3.85-5.65); Red Cell Distribution Width 14.1 % (12.1-15.1); White Blood Count 8.27 10^3/uL (3.29-11.43)
[2024-10-26 11:37] LABS: Alanine Aminotransferase 17 U/L (0-33); Albumin Level 3.7 g/dL (3.5-5.2); Alkaline Phosphatase 101 U/L (35-105); Anion Gap 14.9 (5-19); Aspartate Amino Transferase 23 U/L (0-32); Blood Urea Nitrogen 16 mg/dL (8-23); Calcium 8.9 mg/dL (8.5-10.5); Carbon Dioxide 26 mmol/L (22-29); Chloride 102 mmol/L (98-107); Globulin 3.3 g/dL (1.3-4.6); Glucose 104 mg/dL (65-115); Osmolality Calculated 287 mOsm/kg (285-295); Potassium 4.9 mmol/L (3.5-5.1); Sodium 138 mmol/L (136-145); Total Bilirubin 0.3 mg/dL (0.15-1.2)
== END 2024-10-26 10:40 | disposition home or self-care (01) ==
LOC: LAB 10:40
PROVIDERS: PCP Family Medicine; Visit Provider Internal Medicine Cardiovascular Disease
DX: Z79.01 Long term (current) use of anticoagulants (principal); R53.1 Weakness; I25.118 Atherosclerotic heart disease of native coronary artery with other forms of angina pectoris; I48.91 Unspecified atrial fibrillation
CPT/HCPCS: 36415; 80053; 85025; 85610; 86850; 86900

== ENCOUNTER 2024-10-30 05:41 | Outpatient (CLI) | payer MEDICARE, SELFPAY ==
[2024-10-30] VITALS (32 sets, daily range): BP systolic 139–225; BP diastolic 76–102; PULSE 61–96; RESP 12–23; TEMP 36.5–36.8; O2SAT 92–95; BMI 34.4
[2024-10-30] MEDS: diphenhydrAMINE 50 mg Capsule PO (06:35)
--- NOTE | 2024-10-30 07:02 | W.PM.OPSUD ---
Surgery/Procedure H&P Update DATE OF PROCEDURE: October 30, 2024 DATE H&P PERFORMED: 10/30/24 H&P UPDATE INFORMATION: I have reviewed H&P completed within last 30 days, I have examined patient prior to procedure and No changes to prior documentation PREOP DIAGNOSIS: ASHD PRIMARY INDICATION FOR PROCEDURE: History of ASHD, status post coronary artery bypass surgery, abnormal Myocardial perfusion imaging. PLANNED PROCEDURE: Operation Date: 10/30/24 07:00 Proposed Procedures p Cardiac Catheterization - C w/wo LV & Coros(Left) - Kristian Velasquez MD PATIENT REASSESSED PRIOR TO SEDATION, WITH NO CHANGE NOTED: Yes PHYSICAL EXAM: alert, oriented x 3, clear to auscultation bilaterally and regular rate & rhythm AIRWAY EVAL/ANESTHESIA PLAN: normal airway, see other exam findings, Monitored Anesthesia, Local Anesthesia, Risks, benefits & alternatives of sedation and/or procedure discussed and Patient agrees to continue as planned
--- NOTE | 2024-10-30 07:05 | PM.HP ---
Providers/Chief Complaint Admitting Physician: Dr. RAY Velasquez Primary Care Provider: Wiley Middleton MD Chief Complaint: R93.1 History of Present Illness Rolanda Blandon is a 88 year old female with a history of atherosclerotic heart diseas, status post single-vessel coronary bypass surgery in 2017, he is presenting with exertional dyspnea and easy fatigability. She had an abnormal Myocardial perfusion imaging revealing ischemia in the distribution of the right coronary artery and circumflex artery. She also is known to have mild aortic valve stenosis and moderately severe mitral regurgitation. She denies any chest pain or palpitations. No fever, chills or cough. She has been compliant with medications. She is recently diagnosed with atrial fibrillation/flutter. She was found Eliquis for a day or so then she took herself off this medication because of the upcoming angiogram. She has a history of hypertension, dyslipidemia and a strong family history for premature atherosclerotic heart diseas. Review of Systems Narrative: CONSTITUTIONAL: No fever or chills. EYES: No blurring of vision or other visual disturbances lately. ENT: No hoarseness of voice, auditory disturbances or sore throat. CARDIOVASCULAR: As mentioned above. RESPIRATORY: No significant cough. GASTROINTESTINAL: No hematemesis or melena. GENITOURINARY: No dysuria or hematuria. INTEGUMENTARY: No skin rashes or history of skin cancer. NEURO: No transient ischemic attacks or amaurosis. PSYCHIATRIC: No history of psychosis or major depression. HEMATOLOGIC: History of multiple cancers in the past. No recent recurrence. ENDOCRINE: No history of polyuria or polydipsia. MUSCULOSKELETAL: No recent joint pain or swelling. ALLERGY/IMMUNOLOGY: As mentioned above. Medications/Allergies Home Medications ?Medication ?Instructions ?Recorded ?Confirmed ?Last Taken ?Type ascorbic acid (vitamin C) 1,000 mg 1,000 mg PO QAM 01/13/23 10/30/24 10/05/23 History tablet aspirin 81 mg tablet,delayed 81 mg PO QPM 01/13/23 10/30/24 10/30/24 04:30 History release (Rosy Low Dose Aspirin) cholecalciferol (vitamin D3) 25 25 mcg PO QAM 01/13/23 10/30/24 10/05/23 History mcg (1,000 unit) capsule cyanocobalamin (vitamin B-12) 1,000 mcg PO QAM 01/13/23 10/30/24 10/05/23 History 1,000 mcg capsule ezetimibe 10 mg tablet 10 mg PO DAILY 01/13/23 10/30/24 10/30/24 04:30 History multivitamin 1 tab PO QAM 01/13/23 10/30/24 10/05/23 History primidone 50 mg tablet 50 mg PO TID 01/13/23 10/30/24 10/30/24 04:30 History tramadol 50 mg tablet 50 mg PO Q8H PRN Pain 01/13/23 10/30/24 10/30/24 04:30 History vitamin K2 45 mcg capsule 45 mcg PO QAM 01/13/23 10/30/24 10/05/23 History zinc gluconate 50 mg tablet 50 mg PO QAM 01/13/23 10/30/24 10/30/24 04:30 History enalapril maleate 20 mg tablet 20 mg PO BID #60 tabs 10/06/23 10/30/24 10/30/24 04:30 Rx hydralazine 100 mg tablet 100 mg PO BID #60 tabs 10/06/23 10/30/24 10/30/24 04:30 Rx isosorbide mononitrate 30 mg 30 mg PO DAILY #60 tabs 10/06/23 10/30/24 10/30/24 04:30 Rx tablet,extended release 24 hr furosemide 40 mg tablet 40 mg PO QAM PRN swelling 02/29/24 10/30/24 Unknown History apixaban 5 mg tablet (Eliquis) 5 mg PO BID #60 tabs 09/03/24 10/30/24 1 Week Ago Rx ~10/23/24 levothyroxine 125 mcg tablet 100 mcg PO QAM 10/30/24 10/30/24 10/30/24 04:30 History Allergies Allergy/AdvReac Type Severity Reaction Status Date / Time clopidogrel (From Plavix) Allergy Unknown Verified 09/03/24 14:57 ibandronate sodium (From Allergy Unknown Verified 09/03/24 14:57 Boniva) influenza virus vaccine, Allergy Unknown Verified 09/03/24 14:57 live atten lovastatin Allergy Unknown Verified 09/03/24 14:57 metoclopramide (From Reglan) Allergy Unknown Verified 09/03/24 14:57 PFSH Acute PFSH: Medical History Accelerated hypertension Thyroid cancer Vulvar cancer Cancer of right breast Degenerative arthritis Hyperlipidemia History of cancer of vulva History of thyroid cancer History of breast cancer History of melanoma Chronic kidney disease Coronary artery disease Hypertension Surgical History H/O bilateral cataract extraction History of lumbosacral spine surgery History of total knee arthroplasty History of hysterectomy with bilateral oophorectomy (1984) History of removal of implants of both breasts History of vulvectomy (1990) Partial vulvectomy for vulvar cancer History of melanoma excision excision of melanoma from the left cheek History of bilateral mastectomy (12/03/15) Bilateral mastectomy with right axillary lymph node dissection History of thyroidectomy (05/12/18) Total thyroidectomy 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 History of heart bypass surgery Family History Sister Dementia Brother Stroke Mother Stroke CAD (coronary artery disease) Cancer uterine Father Lung disease Family/Other Suicide Grandson Other Hyperlipidemia Hypertension Denies family history of Diabetes Clotting disorder Psychiatric illness Chronic kidney disease (CKD) Anesthesia complication Bleeding disorder Social History Smoking and tobacco/nicotine status: former use of tobacco/nicotine Quit status (tobacco/nicotine): has quit using Year quit tobacco: 1978 Former quit date comment: smoked x 27 years Alcohol intake: former Former alcohol use details: socially Vitals/I&O/Wt Last Vital Signs Temp 97.9 F 10/30/24 06:08 Pulse 69 10/30/24 06:08 Resp 18 10/30/24 06:08 BP 154/79 10/30/24 06:08 Pulse Ox 95 10/30/24 06:08 O2 Del Method Room Air 10/30/24 06:08 Weight last 48 hrs Weight 188 lb Physical Exam Narrative: GENERAL: The patient is alert and oriented times three. Not in any acute distress. HEENT: No significant pallor, icterus or lymphadenopathy.Oral cavity: There are no mucous membrane lesions. NECK: Trachea appears to be central. No masses noted. No JVD or thyromegaly appreciated. RESPIRATORY: Chest is symmetrical. No intercostals muscle retraction or any accessory muscle activation. There is no chest wall tenderness. Breath sounds are heard bilaterally. No rales or rhonchi heard. No evidence of any consolidation. BREASTS: Deferred. HEART: The heart sounds are normal. No S3 or S4. Ejection systolic murmur grade 3 or 6 in the aortic area. Early systolic murmur grade 3 or 6 in the mitral area. No pericardial rub . ABDOMEN: No vessel pulsations or distention. No tenderness. No organomegaly appreciated. Bowel sounds are normally heard. : Deferred. RECTAL: Deferred. LYMPHATIC: No lymphadenopathy noted in the neck. EXTREMITIES: No edema or cyanosis. No clubbing. MUSCULOSKELETAL: No acute joint deformities or swelling SKIN: There are no significant rashes or ecchymosis NEUROPSYCHIATRIC: The patient is alert and oriented x3. Appears to be in a good mood. No tremors or rigidity noted. Data 10/31/24 03:45 10/31/24 03:45 A&P Assessment and plan (1) Atherosclerosis of coronary artery of [place] heart without angina pectoris: Qualifiers: Coronary Disease-Associated Artery/Lesion type: [place] artery Qualified Code(s): I25.10 - Atherosclerotic heart disease of [place] coronary artery without angina pectoris (2) Accelerated hypertension: (3) Carotid artery stenosis, asymptomatic: Qualifiers: Laterality: bilateral Qualified Code(s): I65.23 - Occlusion and stenosis of bilateral carotid arteries (4) Dyslipidemia: (5) Aortic valve stenosis: Qualifiers: Cardiac valve disease etiology: nonrheumatic Qualified Code(s): I35.0 - Nonrheumatic aortic (valve) stenosis (6) Mitral regurgitation: Qualifiers: Cardiac valve disease etiology: nonrheumatic Qualified Code(s): I34.0 - Nonrheumatic mitral (valve) insufficiency (7) Atrial fibrillation by electrocardiogram: (8) Abnormal nuclear cardiac imaging test: Plan In view of the patient's ongoing symptoms, multiple risk factors, abnormal Myocardial perfusion imaging, in order to further evaluate the coronary status as well as the graft status, a cardiac catheterization was recommended. The risk of bleeding, hematoma, vascular injury, myocardial infarction, myocardial perforation, malignant cardiac arrhythmias ,CVA, renal failure and other concomitant complications were explained in detail. Patient understood this well and consented to proceed. Patient also was told that if she requires a repeat bypass surgery, she may need to be transferred to another facility. Patient PDMP PDMP Reviewed: Not Reviewed Attestations Medical Necessity Statement*: Patient may require 1 midnight stay. Coding Level of Care Code 94643 Diagnoses Atherosclerosis of [place] coronary artery of [place] heart without angina pectoris I25.10 Coronary Disease-Associated Artery/Lesion type: [place] artery Accelerated hypertension I10 Asymptomatic bilateral carotid artery stenosis I65.23 Laterality: bilateral Dyslipidemia E78.5 Nonrheumatic aortic valve stenosis I35.0 Cardiac valve disease etiology: nonrheumatic Nonrheumatic mitral valve regurgitation I34.0 Cardiac valve disease etiology: nonrheumatic Atrial fibrillation by electrocardiogram I48.91 Abnormal nuclear cardiac imaging test R93.1
--- NOTE | 2024-10-30 08:52 | P.PCN_ITS ---
Procedure Note: Date of procedure: 10/30/24 Pre-procedure diagnosis: Abnormal stress test, angina Post-procedure diagnosis: same Procedure: Please see the full report by Dr. Velasquez patient underwent left heart catheterization by Dr. 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 It was treated with single drug-eluting stent postdilated with noncompliant balloon. Good angio graphic result with JANAE-3 flow was noted at the end of the case. Patient was noted to have very high blood pressure. She is being started on nitro drip. Titrate nitro drip to keep systolic blood pressure below 170. Continue aspirin Brilinta and home medications Patient has sheath in place in the right groin. Check PTT in 2 hours if less than 45 patient Bedrest for 5 hours. Follow-up with Dr. Velasquez Coding Level of Care Code Acute Code for Annetta Fwd
--- NOTE | 2024-10-30 09:39 | PM.OP ---
Operative Report Date of procedure: October 30, 2024 Surgeon: Kristian Velasquez MD Procedure: This patient underwent the left heart catheterization with left and right coronary angiogram and graft angiogram today. She was found to have high-grade stenosis in the ostium of the left main. Right coronary artery was found to have no severe disease. Moderate disease in the left circumflex artery and the left and descending artery. GARCIA to the LAD was found to be patent. The venous graft to the obtuse marginal artery was found to have around 70% lesion proximally. Patient underwent PCI of this lesion by Dr Harris
[2024-10-30] MEDS: sodium chloride 0.9% 1,000 ML 100 ML IV (10:27)
--- NOTE | 2024-10-30 11:01 | PC.NURSE ---
Addendum entered by Alexus Clements RN 10/30/24 11:01: instructions to place chiang cath Original Note: spoke with provider patient requesting chiang due to frequent urination and bed rest
[2024-10-30 13:15] LABS: Partial Thromboplastin Time > 250.0 SECONDS (23.9-36.7)
--- NOTE | 2024-10-30 14:23 | PC.NURSE ---
Pt requesting Lucio catheter be checked because it felt like it was leaking. This nurse assessed catheter, no leaks or kinks found in tubing. This nurse emptied 350 mL from catheter at this time.
--- NOTE | 2024-10-30 15:08 | PC.NURSE ---
spoke with Dr vann about patient Blood pressure remaining high and now greater than 200 sys order recived to giev 50mg Hydralazine POx1 and amlodipine 10mg pox1 now
[2024-10-30] MEDS: primidone 50 mg Tablet PO ×2 (15:34→20:15)
[2024-10-30] MEDS: amlodipine 10 mg Tablet PO (15:34)
[2024-10-30] MEDS: hyDRALAzine 50 mg Tablet PO (15:35)
[2024-10-30] MEDS: nitroglycerin 1 gm/inch oint Pkt 1 INCH TOPICAL ×2 (15:35→20:58)
[2024-10-30 15:36] LABS: Partial Thromboplastin Time 46.2 SECONDS (23.9-36.7)
[2024-10-30] MEDS: acetaminophen 325 mg Tablet 650 MG PO (16:21)
--- NOTE | 2024-10-30 17:00 | PC.NURSE ---
1700 notified provider of blood pressure after administration of PO medication instructions to give 10mg hydralazine IVP now and pull sheath when BP less that 160 sys
[2024-10-30] MEDS: hyDRALAzine 20 mg/mL INJ 1 mL 10 MG IVP (17:16)
--- NOTE | 2024-10-30 18:24 | PC.NURSE ---
sheath removed while blood pressure was with in limits patient tolerated well no hematoma and or other adverse events noted
--- NOTE | 2024-10-30 18:25 | PC.NURSE ---
clarified orders for PO hydralazine and lisinopril due to extra med admins throuout shift change medication admin time to 2100 and give if Bp is >150 sys
[2024-10-30] MEDS: lisinopril 20 mg Tablet PO (18:50)
[2024-10-31] VITALS (8 sets, daily range): BP systolic 115–168; BP diastolic 64–90; PULSE 71–88; RESP 13–26; TEMP 36.7–37.1; O2SAT 93–97
--- NOTE | 2024-10-31 00:51 | PC.NURSE ---
2100 dose of Hydralazine not given due to Systolic BP being less than 150.
[2024-10-31] MEDS: nitroglycerin 1 gm/inch oint Pkt 1 INCH TOPICAL (04:05)
[2024-10-31 04:27] LABS: Basophils # 0.1 10^3/uL (0.0-0.1); Basophils % 0.6 %; Eosinophils # 0.3 10^3/uL (0.0-0.8); Eosinophils % 3.6 %; Hematocrit 39.5 % (36-47); Lymphocytes # 1.2 10^3/uL (0.8-4.8); Lymphocytes % 14.1 %; Mean Corpuscular HGB Conc 32.7 g/dL (30-55); Mean Corpuscular Hemoglobin 28.9 pg (27-33); Mean Corpuscular Volume 88.6 fl (85-98); Mean Platelet Volume 10.8 fL (7.4-10.4); Monocytes % 11.8 %; Neutrophils # 5.76 10^3/uL (1.8-7.7); Neutrophils % 69.7 %; Nucleated Red Blood Cells % 0 %; Platelet Count 257 10^3/cmm (157-399); Red Blood Count 4.46 10^6/uL (3.85-5.65); Red Cell Distribution Width 14.3 % (12.1-15.1); White Blood Count 8.28 10^3/uL (3.29-11.43)
[2024-10-31 04:49] LABS: Anion Gap 14.7 (5-19); Blood Urea Nitrogen 10 mg/dL (8-23); Calcium 8.7 mg/dL (8.5-10.5); Carbon Dioxide 24 mmol/L (22-29); Chloride 103 mmol/L (98-107); Creatinine Clr Calc Pharmacy 51.1355; Glucose 98 mg/dL (65-115); Osmolality Calculated 285 mOsm/kg (285-295); Potassium 3.7 mmol/L (3.5-5.1); Sodium 138 mmol/L (136-145)
[2024-10-31] MEDS: cholecalciferol (vitamin D3) 1,000 unit Tablet 1000 UNIT PO (05:34)
[2024-10-31] MEDS: N 1000 MCG PO (05:34)
[2024-10-31] MEDS: ascorbic acid 500 mg Tablet 1000 MG PO (05:34)
[2024-10-31] MEDS: zinc gluconate 50 mg Tablet PO (05:34)
[2024-10-31] MEDS: levothyroxine 100 mcg Tablet PO (05:34)
[2024-10-31] MEDS: multivitamin therapeutic Tablet 1 TAB PO (05:34)
[2024-10-31] MEDS: lisinopril 20 mg Tablet PO (08:13)
[2024-10-31] MEDS: ezetimibe 10 mg Tablet PO (08:13)
[2024-10-31] MEDS: primidone 50 mg Tablet PO ×2 (08:13→15:13)
[2024-10-31] MEDS: isosorbide mononitrate ER 30 mg Tablet PO (08:13)
[2024-10-31] MEDS: hyDRALAzine 50 mg Tablet 100 MG PO (08:13)
--- NOTE | 2024-10-31 11:00 | PC.NURSE ---
Patient ambulated the hallway a total of 300 feet, vitals remained stable and no chest pain.
--- NOTE | 2024-10-31 11:59 | PM.PN ---
Subjective Subjective: This patient is admitted to the hospital yesterday, following the cardiac catheterization and PCI. She was found to have a high-grade lesion in the venous graft to the circumflex artery. The GARCIA to the LAD was found to be patent. She had a high-grade lesion in the ostium of the left main. Moderate diffuse disease in the mid LAD and circumflex artery. She continues to remain Medications: Medication Review Details: Current Medications Acetaminophen (Acetaminophen 325 Mg Tablet) 650 mg PO Q6H PRN PRN Reason: MILD PAIN Last Admin: 10/30/24 16:21 Dose: 650 mg Hydrocodone Bitart/Acetaminophen (Hydrocodone-Acetaminophen 5-325 Mg Tablet) 1 tab PO Q4H PRN PRN Reason: PAIN Al Hydrox/Mg Hydrox/Simethicone (Kadp-Lpt-Tdrbhfjxt-Anselmo 30 Ml Udc) 30 ml PO Q15M PRN PRN Reason: INDIGESTION Alprazolam (Alprazolam 0.5 Mg Tablet) 0.25 mg PO TID PRN PRN Reason: ANXIETY Ascorbic Acid (Ascorbic Acid 500 Mg Tablet) 1,000 mg PO QAM [facility] Last Admin: 10/31/24 05:34 Dose: 1,000 mg Aspirin (Aspirin 81 Mg Ec Tablet) 81 mg PO QPM [facility] Last Admin: 10/30/24 11:28 Dose: Not Given Atropine Sulfate (Atropine 1 Mg/Ml Sdv 1 Ml) 0.5 mg IVP PRN PRN PRN Reason: Symptomatic bradycardia Cyanocobalamin (N) 1,000 mcg PO QAM [facility] Last Admin: 10/31/24 05:34 Dose: 1,000 mcg Ezetimibe (Ezetimibe 10 Mg Tablet) 10 mg PO DAILY [facility] Last Admin: 10/31/24 08:13 Dose: 10 mg Fentanyl (Fentanyl 50 Mcg/Ml Inj 2ml) 50 mcg IVP PRN PRN PRN Reason: PAIN Furosemide (Furosemide 40 Mg Tablet) 40 mg PO QAM PRN PRN Reason: swelling Hydralazine HCl (Hydralazine 50 Mg Tablet) 100 mg PO BID [facility] Last Admin: 10/31/24 08:13 Dose: 100 mg Sodium Chloride (Sodium Chloride 0.9%) 1,000 mls @ 100 mls/hr IV .Q10H [facility] Last Admin: 10/31/24 05:36 Dose: Not Given Isosorbide Mononitrate (Isosorbide Mononitrate Er 30 Mg Tablet) 30 mg PO DAILY [facility] Last Admin: 10/31/24 08:13 Dose: 30 mg Levothyroxine Sodium (Levothyroxine 100 Mcg Tablet) 100 mcg PO [facility] Last Admin: 10/31/24 05:34 Dose: 100 mcg Lisinopril (Lisinopril 20 Mg Tablet) 20 mg PO BID [facility] Last Admin: 10/31/24 08:13 Dose: 20 mg Magnesium Hydroxide (Magnesium Hydroxide 30 Ml Udc) 30 ml PO DAILY PRN PRN Reason: CONSTIPATION Multivitamins Therapeutic (Multivitamin Therapeutic Tablet) 1 tab PO [facility] Last Admin: 10/31/24 05:34 Dose: 1 tab Naloxone HCl (Naloxone 0.4 Mg/Ml Sdv) 0.1 mg IVP Q2M PRN PRN Reason: RESPIRATORY RATE < 8/MIN Nitroglycerin (Nitroglycerin 1 Gm/Inch Oint Pkt) 1 inch TOPICAL Q6H [facility] Last Admin: 10/31/24 08:48 Dose: Not Given Nitroglycerin (Nitroglycerin 0.4 Mg Sublingual Tablet) 0.4 mg SUBLINGUAL Q5M PRN PRN Reason: CHEST PAIN Non-Formulary Medication (Vitamin K2) 45 mcg PO [facility] Primidone (Primidone 50 Mg Tablet) 50 mg PO TID [facility] Last Admin: 10/31/24 08:13 Dose: 50 mg Temazepam (Temazepam 15 Mg Capsule) 15 mg PO BEDTIME PRN PRN Reason: INSOMNIA Tramadol HCl (Tramadol 50 Mg Tablet) 50 mg PO Q8H PRN PRN Reason: Pain Vitamin D (Cholecalciferol (Vitamin D3) 1,000 Unit Tablet) 1,000 unit PO [facility] Last Admin: 10/31/24 05:34 Dose: 1,000 unit Zinc Gluconate (Zinc Gluconate 50 Mg Tablet) 50 mg PO [facility] Last Admin: 10/31/24 05:34 Dose: 50 mg Vitals/I&O/Wt Last Vital Signs Temp 98.6 F 10/31/24 11:51 Pulse 71 10/31/24 11:51 Resp 20 H 10/31/24 11:51 BP 148/73 10/31/24 11:51 Pulse Ox 96 10/31/24 11:51 O2 Del Method Room Air 10/31/24 11:51 10/30/24 10/31/24 10/31/24 22:59 06:59 14:59 Intake Total 1140 / 1140 200 / 1340 360 / 360 Output Total 1450 / 1450 Balance -310 / -310 200 / -110 360 / 360 Weight last 48 hrs Weight 188 lb Physical Exam Narrative: GENERAL: The patient is alert and oriented times three. Not in any acute distress. HEENT: No significant pallor, icterus or lymphadenopathy.Oral cavity: There are no mucous membrane lesions. NECK: Trachea appears to be central. No masses noted. No JVD or thyromegaly appreciated. RESPIRATORY: Chest is symmetrical. No intercostals muscle retraction or any accessory muscle activation. There is no chest wall tenderness. Breath sounds are heard bilaterally. No rales or rhonchi heard. No evidence of any consolidation. BREASTS: Deferred. HEART: The heart sounds are normal. No S3 or S4. No significant murmurs. No pericardial rub ABDOMEN: No vessel pulsations or distention. No tenderness. No organomegaly appreciated. Bowel sounds are normally heard. : Deferred. RECTAL: Deferred. LYMPHATIC: No lymphadenopathy noted in the neck. EXTREMITIES: Has no hematoma bleeding of the right groin. MUSCULOSKELETAL: No acute joint deformities or swelling SKIN: There are no significant rashes or ecchymosis NEUROPSYCHIATRIC: The patient is alert and oriented x3. Appears to be in a good mood. No tremors or rigidity noted. Urinary Catheter Management: Lucio: Cath Placed During This Visit: yes Reason for Continuing Indwelling Catheter: Other Urinary Catheter Date of Insertion: 10/30/24 Urinary Catheter Time of Insertion: 11:30 Data 10/31/24 03:45 10/31/24 03:45 Other Labs: Laboratory Last Values WBC 8.28 10^3/uL (3.29-11.43) 10/31/24 03:45 RBC 4.46 10^6/uL (3.85-5.65) 10/31/24 03:45 Hgb 12.90 g/dL (11.27-16.99) 10/31/24 03:45 Hct 39.5 % (36-47) 10/31/24 03:45 MCV 88.6 fl (85-98) 10/31/24 03:45 MCH 28.9 pg (27-33) 10/31/24 03:45 MCHC 32.7 g/dL (30-55) 10/31/24 03:45 RDW 14.3 % (12.1-15.1) 10/31/24 03:45 Plt Count 257 10^3/cmm (157-399) 10/31/24 03:45 MPV 10.8 fL (7.4-10.4) H 10/31/24 03:45 Neut % (Auto) 69.7 % 10/31/24 03:45 Lymph % (Auto) 14.1 % 10/31/24 03:45 Kleberg % (Auto) 11.8 % 10/31/24 03:45 Eos % (Auto) 3.6 % 10/31/24 03:45 Baso % (Auto) 0.6 % 10/31/24 03:45 Neut # (Auto) 5.76 10^3/uL (1.8-7.7) 10/31/24 03:45 Lymph # (Auto) 1.2 10^3/uL (0.8-4.8) 10/31/24 03:45 Kle[place] # (Auto) 1.0 10^3/uL (0.2-0.9) H 10/31/24 03:45 Eos # (Auto) 0.3 10^3/uL (0.0-0.8) 10/31/24 03:45 Baso # (Auto) 0.1 10^3/uL (0.0-0.1) 10/31/24 03:45 Nucleated RBC % (auto) 0 % 10/31/24 03:45 Nucleated RBCs # 0.0 /100WBC 10/31/24 03:45 APTT 46.2 SECONDS (23.9-36.7) H D 10/30/24 15:09 Sodium 138 mmol/L (136-145) 10/31/24 03:45 Potassium 3.7 mmol/L (3.5-5.1) 10/31/24 03:45 Chloride 103 mmol/L (98-107) 10/31/24 03:45 Carbon Dioxide 24 mmol/L (22-29) 10/31/24 03:45 Anion Gap 14.7 (5-19) 10/31/24 03:45 BUN 10 mg/dL (8-23) 10/31/24 03:45 Creatinine 0.6 mg/dL (0.5-0.9) 10/31/24 03:45 GFR Calculation Not Reportable 10/31/24 03:45 Glucose 98 mg/dL (65-115) 10/31/24 03:45 Calculated Osmolality 285 mOsm/kg (285-295) 10/31/24 03:45 Calcium 8.7 mg/dL (8.5-10.5) 10/31/24 03:45 A&P Assessment and plan (1) Atherosclerosis of coronary artery of [place] heart without angina pectoris: Patient's status post PCI of the venous graft to the obtuse marginal artery. Currently remaining stable. Qualifiers: Coronary Disease-Associated Artery/Lesion type: [place] artery Qualified Code(s): I25.10 - Atherosclerotic heart disease of [place] coronary artery without angina pectoris (2) Accelerated hypertension: Blood pressure seems to be getting under control. I may increase the dose of the hydralazine to 100 mg 3 times a day to better control the blood pressure. (3) Carotid artery stenosis, asymptomatic: Stable. Recommend continue on the current medications. Qualifiers: Laterality: bilateral Qualified Code(s): I65.23 - Occlusion and stenosis of bilateral carotid arteries (4) Dyslipidemia: Continue on the current management. (5) Aortic valve stenosis: Appears to be mild. Currently on the current measures. Qualifiers: Cardiac valve disease etiology: nonrheumatic Qualified Code(s): I35.0 - Nonrheumatic aortic (valve) stenosis (6) Mitral regurgitation: Moderately severe by echocardiogram. May consider a HOLDEN to better evaluate the mitral valve status, sometime later Qualifiers: Cardiac valve disease etiology: nonrheumatic Qualified Code(s): I34.0 - Nonrheumatic mitral (valve) insufficiency (7) Atrial fibrillation by electrocardiogram: Patient will be put back on the Eliquis from tomorrow onwards Plan Restart Eliquis tomorrow Increase the dose of hydralazine to 100 mg 3 times a day Continue other medications as it is Will be seen in the clinic in a week I will be seeing her in the office as scheduled PDMP PDMP Reviewed: Not Reviewed Attestations Medical Necessity Statement*: Discharge home today Coding Level of Care Code 66462 Diagnoses Atherosclerosis of [place] coronary artery of [place] heart without angina pectoris I25.10 Coronary Disease-Associated Artery/Lesion type: [place] artery Accelerated hypertension I10 Asymptomatic bilateral carotid artery stenosis I65.23 Laterality: bilateral Dyslipidemia E78.5 Nonrheumatic aortic valve stenosis I35.0 Cardiac valve disease etiology: nonrheumatic Nonrheumatic mitral valve regurgitation I34.0 Cardiac valve disease etiology: nonrheumatic Atrial fibrillation by electrocardiogram I48.91
== END 2024-10-31 17:34 | disposition home or self-care (01) ==
LOC: CCL 05:42 → CSU 09:11
PROVIDERS: Internal Medicine Cardiovascular Disease; PCP Family Medicine; Visit Provider Internal Medicine Cardiovascular Disease
DX: I65.23 Occlusion and stenosis of bilateral carotid arteries (principal); Z79.01 Long term (current) use of anticoagulants; I25.10 Atherosclerotic heart disease of native coronary artery without angina pectoris; I10 Essential (primary) hypertension; E78.5 Hyperlipidemia, unspecified; I35.0 Nonrheumatic aortic (valve) stenosis; I34.0 Nonrheumatic mitral (valve) insufficiency; I48.91 Unspecified atrial fibrillation; R93.1 Abnormal findings on diagnostic imaging of heart and coronary circulation
CPT/HCPCS: 36415; 51702; 80048; 85025; 85347; 85730; 93459; 96374; 96375; 99152; 99153; C1725; C1769; C1874; C1887; C1894; C9600; J0360; J1644; J2250; J3010; J3490; J7030; Q0163; Q9967

== ENCOUNTER → 2024-11-14 13:30 | Outpatient (BNVA) | payer MEDICARE, SELFPAY | PROVIDERS: PCP Family Medicine; Visit Provider Nurse Practitioner Family | DX: I25.10 Atherosclerotic heart disease of native coronary artery without angina pectoris (principal); Z95.5 Presence of coronary angioplasty implant and graft; I10 Essential (primary) hypertension; Z79.01 Long term (current) use of anticoagulants | CPT/HCPCS: 99214 ==

== ENCOUNTER 2024-11-27 12:16 | Outpatient (CLI) | payer MEDICARE, SELFPAY ==
--- NOTE | 2024-11-27 12:30 | CT_ITS ---
WS: [id number] CT chest wo con [id number] HISTORY: MULTIPLE NODULES OF LUNG TECHNIQUE: Axial imaging performed through the thorax. Coronal and sagittal reformats are submitted. All CT scans at [facility] use at least one of these dose optimization techniques: automated exposure control; mA and/or kV adjustment per patient size (includes targeted exams where dose is matched to clinical indication); or iterative reconstruction. CONTRAST: None DLP: 397.09 mGy.cm COMPARISON: 05/01/2024, 03/15/2024, 10/06/2023 Lungs and central airway: Several adjacent nodules in the RIGHT middle lobe are reidentified. There is slight increase in size of the nodules since 10/06/2023. Largest nodule measures 7.4 mm. Nodules have increased in diameter by approximately 2 mm. No additional nodule or mass. Pleura: Normal. No pleural effusion. Heart and pericardium: Moderate cardiomegaly. Prior CABG. No pericardial effusion. Mediastinum and monty: No mediastinal or hilar adenopathy. Vessels: Extensive atherosclerotic plaque within an ectatic aorta. Pulmonary hypertension. Chest wall and lower neck: Prior CABG. Prior RIGHT mastectomy. Upper abdomen: Moderate-sized hiatal hernia. Prior cholecystectomy. No adrenal mass. Suprarenal aortic calcifications. Exophytic low-attenuation mass incompletely visualized from the LEFT kidney measures 2.0 cm. Osseous structures: Increase in thoracic kyphosis with degenerative disc disease and curvature. CT/CT chest wo con [id number] IMPRESSION: 1. Reidentified of the RIGHT middle lobe pulmonary nodules which have been karena cribed since 10/06/2023. There is been a slight increase in size of the nodules by 2 mm. This may not be a significant increase in size but warrant continued e valuation. Largest pulmonary nodule now measures 7.4 mm. No new mass or nodule. Recommend follow-up chest CT in 6 months. 2. Prior RIGHT mastectomy. 3. Moderate cardiomegaly with prior CABG. 4. Prior cholecystectomy. 5. Advanced atherosclerosis thoracic aorta. 6. Moderate size hiatal hernia.
== END 2024-11-27 12:17 | disposition home or self-care (01) ==
PROVIDERS: PCP Family Medicine; Visit Provider Family Medicine
DX: R91.8 Other nonspecific abnormal finding of lung field (principal); Z90.11 Acquired absence of right breast and nipple; I51.7 Cardiomegaly; Z98.890 Other specified postprocedural states; Z90.49 Acquired absence of other specified parts of digestive tract; I70.0 Atherosclerosis of aorta; K44.9 Diaphragmatic hernia without obstruction or gangrene; I27.20 Pulmonary hypertension, unspecified; E27.49 Other adrenocortical insufficiency; N28.89 Other specified disorders of kidney and ureter; M40.294 Other kyphosis, thoracic region; M51.34 Other intervertebral disc degeneration, thoracic region; M43.8X4 Other specified deforming dorsopathies, thoracic region
CPT/HCPCS: 71250

== ENCOUNTER 2024-12-03 18:50 | Emergency (ER) | payer MEDICARE, SELFPAY ==
[2024-12-03 18:58] VITALS: BP 185/104; PULSE 89; TEMP 37.1; O2SAT 95; BMI 34.4
--- NOTE | 2024-12-03 19:14 | W.ED.SKABFB ---
HPI - Skin/Abscess/Foreign Bdy General: Chief complaint: Skin/Abscess/Foreign Body Stated complaint: Rash Possibly Due to Medicine Time Seen by Provider: 12/03/24 19:07 Source: patient Mode of arrival: ambulatory Limitations: no limitations History of Present Illness: Patient is an 89-year-old female presents the emergency department complaining of bruising for the past 3 days. At the end of October she was started on Effient as well as carvedilol post stent placement. She notes that along with the bruising to all extremities and to her abdomen, she has had intermittent rash to her face but has been itchy and red, though she also notes a history of rosacea, stating this is just worse. States that she called the pharmacy and was told to stop these medications, however patient was concerned because paperwork with the medication specifically said to not stop the medications without seeking medical attention. She is not complaining of any chest pain, shortness of breath, fevers, or other symptoms at this time. Denies any trauma to the extremities or any other explanation for the bruising. MD complaint: rash and other (Bruising) Onset (ago): day(s) (3) Location: generalized and face Severity: mild Quality: pruritic Pain Consistency: constant Relieving factors: none Context: new medication Associated symptoms: Deny chills, fever(s), nausea or vomiting Treatments prior to arrival: none Related Data Home Medications ?Medication ?Instructions ?Recorded ?Confirmed ascorbic acid (vitamin C) 1,000 mg 1,000 mg PO QAM 01/13/23 11/14/24 tablet cholecalciferol (vitamin D3) 25 25 mcg PO QAM 01/13/23 11/14/24 mcg (1,000 unit) capsule cyanocobalamin (vitamin B-12) 1,000 mcg PO QAM 01/13/23 11/14/24 1,000 mcg capsule ezetimibe 10 mg tablet 10 mg PO DAILY 01/13/23 11/14/24 multivitamin 1 tab PO QAM 01/13/23 11/14/24 primidone 50 mg tablet 50 mg PO TID 01/13/23 11/14/24 tramadol 50 mg tablet 50 mg PO Q8H PRN Pain 01/13/23 11/14/24 vitamin K2 45 mcg capsule 45 mcg PO QAM 01/13/23 11/14/24 zinc gluconate 50 mg tablet 50 mg PO QAM 01/13/23 11/14/24 furosemide 40 mg tablet 40 mg PO QAM PRN swelling 02/29/24 11/14/24 levothyroxine 125 mcg tablet 100 mcg PO QAM 10/30/24 11/14/24 hydralazine 50 mg tablet 50 mg PO BID 11/14/24 11/14/24 Previous Rx's ?Medication ?Instructions ?Recorded enalapril maleate 20 mg tablet 20 mg PO BID #60 tabs 10/06/23 isosorbide mononitrate 30 mg 30 mg PO DAILY #60 tabs 10/06/23 tablet,extended release 24 hr apixaban 5 mg tablet (Eliquis) 5 mg PO BID #60 tabs 09/03/24 prasugrel HCl 10 mg tablet 10 mg PO DAILY #30 tabs 11/02/24 (Effient) cefdinir 300 mg capsule 300 mg PO BID 7 days #14 caps 12/03/24 Allergies Allergy/AdvReac Type Severity Reaction Status Date / Time clopidogrel (From Plavix) Allergy Unknown Verified 12/03/24 19:04 ibandronate sodium (From Allergy Unknown Verified 12/03/24 19:04 Boniva) influenza virus vaccine, Allergy Unknown Verified 12/03/24 19:04 live atten lovastatin Allergy Unknown Verified 12/03/24 19:04 metoclopramide (From Reglan) Allergy Unknown Verified 12/03/24 19:04 Review of Systems General: Reports: 10 or more systems reviewed and unremarkable except in HPI and below Const: Denies: fever(s) or chills Card: Denies: chest pain Resp: Denies: dyspnea GI: Denies: abdominal pain, nausea, vomiting or diarrhea Musc: Denies: extremity pain or joint pain Skin/Breast: Reports: rash and pruritus; Denies: skin pain, skin tenderness or new lesions Neuro: Denies: headache(s) Daniel/Lymph: Reports: easy bruising PFSH ED PFSH: Medical History Accelerated hypertension Thyroid cancer Vulvar cancer Cancer of right breast Degenerative arthritis Hyperlipidemia History of cancer of vulva History of thyroid cancer History of breast cancer History of melanoma Chronic kidney disease Coronary artery disease Hypertension Surgical History H/O bilateral cataract extraction History of lumbosacral spine surgery History of total knee arthroplasty History of hysterectomy with bilateral oophorectomy (1984) History of removal of implants of both breasts History of vulvectomy (1990) Partial vulvectomy for vulvar cancer History of melanoma excision excision of melanoma from the left cheek History of bilateral mastectomy (12/03/15) Bilateral mastectomy with right axillary lymph node dissection History of thyroidectomy (05/12/18) Total thyroidectomy 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 History of heart bypass surgery Family History Sister Dementia Brother Stroke Mother Stroke CAD (coronary artery disease) Cancer uterine Father Lung disease Family/Other Suicide Grandson Other Hyperlipidemia Hypertension Denies family history of Diabetes Clotting disorder Psychiatric illness Chronic kidney disease (CKD) Anesthesia complication Bleeding disorder Social History Smoking and tobacco/nicotine status: never used tobacco/nicotine Quit status (tobacco/nicotine): has quit using Year quit tobacco: 1978 Former quit date comment: smoked x 27 years Alcohol intake: former Former alcohol use details: socially Physical Exam Const: COMMON NORMALS: no acute distress, average body habitus, patient oriented x3, no limitations, healthy appearing, alert and well nourished HENMT: COMMON NORMALS: normocephalic and atraumatic HEAD & SCALP: normocephalic and atraumatic Neck/C-Spine: COMMON NORMALS: full ROM, no lymphadenopathy, supple and no meningeal signs Resp: COMMON NORMALS: normal respiratory effort, No use of accessory muscles and clear to auscultation bilaterally AUSCULTATION: clear to auscultation bilaterally Cardio: COMMON NORMALS: regular rate and regular rhythm RATE: regular rate RHYTHM: regular rhythm Extremity: COMMON NORMALS: full ROM and capillary refill normal Neuro: COMMON NORMALS: patient oriented x3 SENSORIUM/ORIENTATION: Yes alert MENINGEAL SIGNS: Yes no meningeal signs Skin: COMMON NORMALS: no wounds and turgor normal NARRATIVE SKIN EXAM: Bruising to all 4 extremities, mild. No petechial bleeding evident. No purpura. Erythematous rash to bilateral cheeks, mild. GENERAL SKIN EXAM: turgor normal Course Vital Signs: Vital signs: Vital Signs Temperature 98.7 F 12/03/24 18:58 Pulse Rate 68 12/03/24 20:27 Blood Pressure 135/77 12/03/24 20:27 Pulse Oximetry 92 12/03/24 20:27 Oxygen Delivery Me thod Room Air 12/03/24 19:34 MDM - Skin/Abscess/Foreign Bdy Medicial Decision Making Patient presented concerned of bruising to her extremities and abdomen, which was present on exam but did appear minor. There is no petechial bleeding or purpura evident, no fever, and no other concerning physical exam findings or symptoms. She did recently start Effient, could explain the new bruising. I did order some basic lab work that showed a normal CBC, and normal PT/INR. She did also complain of some increased urinary frequency so ordered a UA that showed 2+ leukocytes and white blood cells and will treat for UTI. I think that she should continue taking the medication she was prescribed due to the recent cath that she had, and that she needs to call her turf grower in the morning to discuss the bruising and for close follow-up. Stable for discharge home at this time but did tell her to return with any described petechial bleeding or purpura, or any other concerns that she has. Lab Data 12/03/24 19:32 12/03/24 19:32 Laboratory Results WBC 8.29 10^3/uL (3.29-11.43) 12/03/24 19:32 RBC 4.23 10^6/uL (3.85-5.65) 12/03/24 19:32 Hgb 12.50 g/dL (11.27-16.99) 12/03/24 19:32 Hct 37.9 % (36-47) 12/03/24 19:32 MCV 89.6 fl (85-98) 12/03/24 19:32 MCH 29.6 pg (27-33) 12/03/24 19: MCHC 33.0 g/dL (30-55) 12/03/24 19:32 RDW 14.6 % (12.1-15.1) 12/03/24 19:32 Plt Count 256 10^3/cmm (157-399) 12/03/24 19:32 MPV 10.4 fL (7.4-10.4) 12/03/24 19:32 Neut % (Auto) 65.6 % 12/03/24 19:32 Lymph % (Auto) 17.6 % 12/03/24 19:32 [place] % (Auto) 11.0 % 12/03/24 19:32 Eos % (Auto) 4.8 % 12/03/24 19:32 Baso % (Auto) 0.6 % 12/03/24 19:32 Neut # (Auto) 5.44 10^3/uL (1.8-7.7) 12/03/24 19:32 Lymph # (Auto) 1.5 10^3/uL (0.8-4.8) 12/03/24 19:32 [place] # (Auto) 0.9 10^3/uL (0.2-0.9) 12/03/24 19: Eos # (Auto) 0.4 10^3/uL (0.0-0.8) 12/03/24 19: Baso # (Auto) 0.1 10^3/uL (0.0-0.1) 12/03/24 19:32 Nucleated RBC % (auto) 0 % 12/03/24 19: Nucleated RBCs # 0.0 /100WBC 12/03/24 19:32 PT 12.50 SECONDS (12.1-14.9) 12/03/24 19:32 INR 0.87 (0.8-1.2) 12/03/24 19:32 Sodium 139 mmol/L (136-145) 12/03/24 19:32 Potassium 4.1 mmol/L (3.5-5.1) 12/03/24 19:32 Chloride 104 mmol/L (98-107) 12/03/24 19:32 Carbon Dioxide 26 mmol/L (22-29) 12/03/24 19:32 Anion Gap 13.1 (5-19) 12/03/24 19:32 BUN 18 mg/dL (8-23) 12/03/24 19:32 Creatinine 0.6 mg/dL (0.5-0.9) 12/03/24 19:32 GFR Calculation Not Reportable 12/03/24 19:32 Glucose 109 mg/dL (65-115) 12/03/24 19:32 Calculated Osmolality 290 mOsm/kg (285-295) 12/03/24 19:32 Calcium 9.0 mg/dL (8.5-10.5) 12/03/24 19:32 Total Bilirubin 0.3 mg/dL (0.15-1.2) 12/03/24 19:32 AST 17 U/L (0-32) 12/03/24 19:32 ALT 15 U/L (0-33) 12/03/24 19:32 Alkaline Phosphatase 92 U/L (35-105) 12/03/24 19:32 Total Protein 6.8 g/dL (6.6-8.7) 12/03/24 19:32 Albumin 3.9 g/dL (3.5-5.2) 12/03/24 19:32 Globulin 2.9 g/dL (1.3-4.6) 12/03/24 19:32 Urine Color Yellow (Yellow) 12/03/24 19:56 Urine Appearance Clear (CLEAR) 12/03/24 19:56 Urine pH 6.5 (5-7) 12/03/24 19:56 Ur Specific Cameron 1.015 (1.005-1.030) 12/03/24 19:56 Urine Protein Negative (Negative) 12/03/24 19:56 Urine Glucose (UA) Negative (Normal) 12/03/24 19:56 Urine Ketones Negative (Negative) 12/03/24 19:56 Urine Blood Negative (Negative) 12/03/24 19:56 Urine Nitrate Negative (Negative) 12/03/24 19:56 Urine Bilirubin Negative (Negative) 12/03/24 19:56 Urine Urobilinogen 1.0 mg/dL (Negative) 12/03/24 19:56 Ur Leukocyte Esterase 2+ (Negative) A 12/03/24 19:56 Urine RBC 0-2 /hpf (0-2) 12/03/24 19:56 Urine WBC 6-10 /hpf (0-5) 12/03/24 19:56 Ur Squamous Epith Cells 0-5 /hpf (0-5) 12/03/24 19:56 Amorphous Sediment Not Reportable 12/03/24 19:56 Urine Bacteria None seen /hpf (NONE) 12/03/24 19:56 Hyaline Casts 0.40 /lpf 12/03/24 19:56 No radiology studies performed this visit Discharge Plan Discharge Patient Disposition: Home Clinical Impression: Bruising Urinary tract infection Qualifiers: Urinary tract infection type: acute cystitis Hematuria presence: without hematuria Qualified Code(s): N30.00 - Acute cystitis without hematuria Condition: Stable Prescriptions: New cefdinir 300 mg capsule 300 mg PO BID 7 Days Qty: 14 0RF No Action zinc gluconate 50 mg tablet 50 mg PO QAM vitamin K2 45 mcg capsule 45 mcg PO QAM cholecalciferol (vitamin D3) 25 mcg (1,000 unit) capsule 25 mcg PO QAM ascorbic acid (vitamin C) 1,000 mg tablet 1,000 mg PO QAM cyanocobalamin (vitamin B-12) 1,000 mcg capsule 1,000 mcg PO QAM tramadol 50 mg tablet 50 mg PO Q8H PRN (Reason: Pain) multivitamin Tablet 1 tab PO QAM primidone 50 mg tablet 50 mg PO TID ezetimibe 10 mg tablet 10 mg PO DAILY furosemide 40 mg tablet 40 mg PO QAM PRN (Reason: swelling) Eliquis 5 mg tablet 5 mg PO BID Qty: 60 6RF hydralazine 50 mg tablet 50 mg PO BID prasugrel HCl [Effient] 10 mg tablet 10 mg PO DAILY Qty: 30 1RF enalapril maleate 20 mg tablet 20 mg PO BID Qty: 60 0RF isosorbide mononitrate 30 mg tablet extended release 24 hr 30 mg PO DAILY Qty: 60 4RF levothyroxine 125 mcg tablet 100 mcg PO QAM Discharge Orders: Discharge ED (Routine); Ordered 12/03/24 Ordered By: Roni Muse Referrals: Wiley Middleton MD [Primary Care Provider] - Patient Instructions: Urinary Tract Infection in Older Adults (ED) Activity Restrictions/Additional Instructions: Take cefdinir as prescribed. Call your turf grower in the morning to discuss your breathing and new medications. Please return with any petechial bleeding as we discussed, high fevers, worsening bruising, or other concerns. Continue taking home medication. Print Language: Afghan Coding Level of Care Code ED Tool Honing Machine Set Up Operator for Annetta Dumont
[2024-12-03 19:34] VITALS: BP 168/95; PULSE 79; O2SAT 92
[2024-12-03 19:42] LABS: Basophils # 0.1 10^3/uL (0.0-0.1); Basophils % 0.6 %; Eosinophils # 0.4 10^3/uL (0.0-0.8); Eosinophils % 4.8 %; Hematocrit 37.9 % (36-47); Lymphocytes # 1.5 10^3/uL (0.8-4.8); Lymphocytes % 17.6 %; Mean Corpuscular Hemoglobin 29.6 pg (27-33); Mean Corpuscular Volume 89.6 fl (85-98); Mean Platelet Volume 10.4 fL (7.4-10.4); Monocytes # 0.9 10^3/uL (0.2-0.9); Neutrophils # 5.44 10^3/uL (1.8-7.7); Neutrophils % 65.6 %; Nucleated Red Blood Cells % 0 %; Platelet Count 256 10^3/cmm (157-399); Red Blood Count 4.23 10^6/uL (3.85-5.65); Red Cell Distribution Width 14.6 % (12.1-15.1); White Blood Count 8.29 10^3/uL (3.29-11.43)
[2024-12-03 19:59] LABS: Alanine Aminotransferase 15 U/L (0-33); Albumin Level 3.9 g/dL (3.5-5.2); Alkaline Phosphatase 92 U/L (35-105); Anion Gap 13.1 (5-19); Aspartate Amino Transferase 17 U/L (0-32); Blood Urea Nitrogen 18 mg/dL (8-23); Carbon Dioxide 26 mmol/L (22-29); Chloride 104 mmol/L (98-107); Creatinine Clr Calc Pharmacy 50.1885; Globulin 2.9 g/dL (1.3-4.6); Glucose 109 mg/dL (65-115); Osmolality Calculated 290 mOsm/kg (285-295); Potassium 4.1 mmol/L (3.5-5.1); Sodium 139 mmol/L (136-145); Total Bilirubin 0.3 mg/dL (0.15-1.2); Total Protein 6.8 g/dL (6.6-8.7)
[2024-12-03 20:01] LABS: INR 0.87 (0.8-1.2)
[2024-12-03 20:01] LABS: Bilirubin Urine Negative (Negative); Blood Urine Negative (Negative); Glucose Urine UA Negative (Normal); Ketones Urine Negative (Negative); Leukocyte Esterase Urine 2+ (Negative); Nitrate Urine Negative (Negative); Protein Urine Negative (Negative); Specific Gravity, Urine 1.015 (1.005-1.030); Urine Appearance Clear (CLEAR); Urine Color Yellow (Yellow); pH Urine 6.5 (5-7)
[2024-12-03 20:06] LABS: Add Urine Microscopic? YES; Bacteria Urine None Seen /hpf; RBC Urine 0-2 /hpf (0-2); Squamous Epithelial Cell Urine 0-5 /hpf (0-5)
[2024-12-03 20:27] VITALS: BP 135/77; PULSE 68; O2SAT 92
[2024-12-03] MEDS: cefdinir 300 MG CAPSULE PO (21:08)
[2024-12-03 21:13] VITALS: BP 152/90; PULSE 68; O2SAT 95
== END 2024-12-03 21:10 | disposition home or self-care (01) ==
PROVIDERS: Emergency Provider Physician Assistant; PCP Family Medicine
DX: T14.8XXA Other injury of unspecified body region, initial encounter (principal); N30.00 Acute cystitis without hematuria; Z79.01 Long term (current) use of anticoagulants; Z85.850 Personal history of malignant neoplasm of thyroid; Z85.89 Personal history of malignant neoplasm of other organs and systems; Z85.3 Personal history of malignant neoplasm of breast; I25.10 Atherosclerotic heart disease of native coronary artery without angina pectoris; I12.9 Hypertensive chronic kidney disease with stage 1 through stage 4 chronic kidney disease, or unspecified chronic kidney disease; N18.9 Chronic kidney disease, unspecified; E78.5 Hyperlipidemia, unspecified; X58.XXXA Exposure to other specified factors, initial encounter
CPT/HCPCS: 36415; 80053; 81001; 85025; 85610; 99283; J9999

== ENCOUNTER 2024-12-12 10:59 | Oncology outpatient (recurring) (ONCR) | payer MEDICARE, SELFPAY ==
[2024-12-12 11:24] LABS: Basophils # 0.1 10^3/uL (0.0-0.1); Basophils % 0.6 %; Eosinophils # 0.2 10^3/uL (0.0-0.8); Eosinophils % 2.3 %; Lymphocytes # 1.9 10^3/uL (0.8-4.8); Lymphocytes % 19.9 %; Mean Corpuscular HGB Conc 32.8 g/dL (30-55); Mean Corpuscular Hemoglobin 29.2 pg (27-33); Mean Corpuscular Volume 88.8 fl (85-98); Mean Platelet Volume 10.5 fL (7.4-10.4); Monocytes # 0.9 10^3/uL (0.2-0.9); Monocytes % 9.3 %; Neutrophils # 6.36 10^3/uL (1.8-7.7); Neutrophils % 67.5 %; Nucleated Red Blood Cells % 0 %; Platelet Count 317 10^3/cmm (157-399); Red Blood Count 4.39 10^6/uL (3.85-5.65); Red Cell Distribution Width 14.4 % (12.1-15.1); White Blood Count 9.44 10^3/uL (3.29-11.43)
[2024-12-12 11:53] LABS: Alanine Aminotransferase 17 U/L (0-33); Albumin Level 4.1 g/dL (3.5-5.2); Alkaline Phosphatase 87 U/L (35-105); Anion Gap 15.5 (5-19); Aspartate Amino Transferase 17 U/L (0-32); Blood Urea Nitrogen 19 mg/dL (8-23); Calcium 8.9 mg/dL (8.5-10.5); Carbon Dioxide 23 mmol/L (22-29); Chloride 101 mmol/L (98-107); Free T4 Free Thyroxine 1.43 ng/dL (0.82-1.77); Globulin 3.2 g/dL (1.3-4.6); Glucose 92 mg/dL (65-115); Osmolality Calculated 282 mOsm/kg (285-295); Potassium 4.5 mmol/L (3.5-5.1); Sodium 135 mmol/L (136-145); T3 Free 2.5 PG/ML (2.0-4.4); Thyroid Stimulating Hormone 10.88 uIU/mL (0.27-4.20); Total Bilirubin 0.3 mg/dL (0.15-1.2); Total Protein 7.3 g/dL (6.6-8.7)
[2024-12-15 05:25] LABS: Thyroglobulin AB 1 IU/mL (< or = 1)
[2024-12-22 18:15] LABS: Thyroglobulin Level <0.4 ng/mL
== END 2024-12-17 23:59 | disposition home or self-care (01) ==
PROVIDERS: Internal Medicine Medical Oncology; PCP Family Medicine; Visit Provider Internal Medicine Cardiovascular Disease
DX: Z08 Encounter for follow-up examination after completed treatment for malignant neoplasm (principal); Z90.13 Acquired absence of bilateral breasts and nipples; Z85.3 Personal history of malignant neoplasm of breast; Z85.820 Personal history of malignant melanoma of skin; Z85.850 Personal history of malignant neoplasm of thyroid; Z90.09 Acquired absence of other part of head and neck; Z90.79 Acquired absence of other genital organ(s)
CPT/HCPCS: 36415; 80053; 84432; 84439; 84443; 84481; 85025; 86800; 99214

== ENCOUNTER → 2024-12-13 13:06 | Outpatient (BNVA) | payer MEDICARE, SELFPAY | PROVIDERS: PCP Family Medicine; Visit Provider Nurse Practitioner Family | DX: R93.1 Abnormal findings on diagnostic imaging of heart and coronary circulation (principal); I25.10 Atherosclerotic heart disease of native coronary artery without angina pectoris; I65.23 Occlusion and stenosis of bilateral carotid arteries; I10 Essential (primary) hypertension; E78.5 Hyperlipidemia, unspecified; I35.0 Nonrheumatic aortic (valve) stenosis; I34.0 Nonrheumatic mitral (valve) insufficiency; I48.91 Unspecified atrial fibrillation | CPT/HCPCS: 99214 ==

== ENCOUNTER → 2025-02-05 11:15 | Outpatient (BNVA) | payer MEDICARE, SELFPAY | PROVIDERS: PCP Family Medicine; Visit Provider Internal Medicine Cardiovascular Disease | DX: I25.10 Atherosclerotic heart disease of native coronary artery without angina pectoris (principal); I48.91 Unspecified atrial fibrillation; I65.23 Occlusion and stenosis of bilateral carotid arteries; I10 Essential (primary) hypertension; E78.5 Hyperlipidemia, unspecified; I35.0 Nonrheumatic aortic (valve) stenosis; I34.0 Nonrheumatic mitral (valve) insufficiency; Z87.891 Personal history of nicotine dependence | CPT/HCPCS: 99214 ==

== ENCOUNTER → 2025-05-31 08:29 | Outpatient (BNVA) | payer MEDICARE, SELFPAY | PROVIDERS: PCP Family Medicine; Visit Provider Nurse Practitioner Family | DX: L21.8 Other seborrheic dermatitis (principal); D69.2 Other nonthrombocytopenic purpura; D23.62 Other benign neoplasm of skin of left upper limb, including shoulder; L81.4 Other melanin hyperpigmentation; L82.1 Other seborrheic keratosis; D18.01 Hemangioma of skin and subcutaneous tissue; Z08 Encounter for follow-up examination after completed treatment for malignant neoplasm; Z85.820 Personal history of malignant melanoma of skin; D48.5 Neoplasm of uncertain behavior of skin | CPT/HCPCS: 11102; 69100; 99213 ==

== ENCOUNTER 2025-06-12 12:28 | Oncology outpatient (recurring) (ONCR) | payer MEDICARE, SELFPAY ==
[2025-06-12 13:04] LABS: Hematocrit 35.4 % (36-47); Hemoglobin 11.40 g/dL (11.27-16.99); Mean Corpuscular HGB Conc 32.2 g/dL (30-55); Mean Corpuscular Hemoglobin 27.7 pg (27-33); Mean Corpuscular Volume 86.1 fl (85-98); Nucleated Red Blood Cells % 0 %; Platelet Count 275 10^3/cmm (157-399); Red Blood Count 4.11 10^6/uL (3.85-5.65); White Blood Count 6.58 10^3/uL (3.29-11.43)
[2025-06-12 13:51] LABS: Alanine Aminotransferase 12 U/L (0-33); Albumin Level 4.0 g/dL (3.5-5.2); Alkaline Phosphatase 82 U/L (35-105); Anion Gap 13.4 (5-19); Aspartate Amino Transferase 14 U/L (0-32); Blood Urea Nitrogen 21 mg/dL (8-23); Calcium 8.9 mg/dL (8.5-10.5); Carbon Dioxide 25 mmol/L (22-29); Chloride 102 mmol/L (98-107); Creatinine Clr Calc Pharmacy 43.8553; Globulin 2.9 g/dL (1.3-4.6); Glucose 93 mg/dL (65-115); Osmolality Calculated 285 mOsm/kg (285-295); Potassium 4.4 mmol/L (3.5-5.1); Sodium 136 mmol/L (136-145); Thyroid Stimulating Hormone 3.04 uIU/mL (0.27-4.20); Total Protein 6.9 g/dL (6.6-8.7)
[2025-06-12 16:30] LABS: Free T4 Free Thyroxine 1.57 ng/dL (0.82-1.77)
== END 2025-06-18 23:59 | disposition home or self-care (01) ==
PROVIDERS: Nurse Practitioner Family; PCP Family Medicine; Visit Provider Internal Medicine Cardiovascular Disease
DX: Z08 Encounter for follow-up examination after completed treatment for malignant neoplasm (principal); Z85.3 Personal history of malignant neoplasm of breast; Z90.13 Acquired absence of bilateral breasts and nipples; Z85.850 Personal history of malignant neoplasm of thyroid; Z87.891 Personal history of nicotine dependence; R91.8 Other nonspecific abnormal finding of lung field; Z79.01 Long term (current) use of anticoagulants; I10 Essential (primary) hypertension; Z86.002 Personal history of in-situ neoplasm of other and unspecified genital organs; Z90.79 Acquired absence of other genital organ(s)
CPT/HCPCS: 36415; 80053; 84432; 84439; 84443; 84481; 85025; 86800; 99214

== ENCOUNTER 2025-07-04 08:49 | Outpatient (CLI) | payer MEDICARE, SELFPAY ==
--- NOTE | 2025-07-04 09:45 | XR_ITS ---
WS: [id number] XR thoracic spine 2V [id number] REASON FOR EXAM: DEGENERATIOM INTERVERTEBRAL DISC FINDINGS: Moderate dextroscoliosis. Moderate dorsal kyphosis. Mild concave compression deformities of T11 and T12. Presumed chronic. Mild disc space narrowing with moderate endplate sclerosis and osteophytosis in the mid and lower thoracic spine. XR/XR thoracic spine 2V [id number] IMPRESSION: Moderate kyphoscoliosis and degenerative spondylosis as above.
== END 2025-07-04 08:50 | disposition home or self-care (01) ==
PROVIDERS: PCP Family Medicine; Visit Provider General Practice
DX: F42.4 Excoriation (skin-picking) disorder (principal); L81.4 Other melanin hyperpigmentation; C44.311 Basal cell carcinoma of skin of nose
CPT/HCPCS: 17281; 72070; 99213

== ENCOUNTER → 2025-08-28 13:41 | Outpatient (BNVA) | payer MEDICARE, SELFPAY | PROVIDERS: PCP Family Medicine; Visit Provider Internal Medicine Cardiovascular Disease | DX: I25.10 Atherosclerotic heart disease of native coronary artery without angina pectoris (principal); I48.91 Unspecified atrial fibrillation; Z79.01 Long term (current) use of anticoagulants; I65.23 Occlusion and stenosis of bilateral carotid arteries; I10 Essential (primary) hypertension; E78.5 Hyperlipidemia, unspecified; I35.0 Nonrheumatic aortic (valve) stenosis; I34.0 Nonrheumatic mitral (valve) insufficiency; C80.0 Disseminated malignant neoplasm, unspecified; Z95.1 Presence of aortocoronary bypass graft; Z87.891 Personal history of nicotine dependence | CPT/HCPCS: 99214 ==

== ENCOUNTER 2025-08-30 08:10 | Oncology outpatient (recurring) (ONCR) | payer MEDICARE, SELFPAY ==
[2025-08-30 08:32] LABS: Hematocrit 39.7 % (36-47); Hemoglobin 12.40 g/dL (11.27-16.99); Mean Corpuscular HGB Conc 31.2 g/dL (30-55); Mean Corpuscular Hemoglobin 26.4 pg (27-33); Mean Corpuscular Volume 84.5 fl (85-98); Nucleated Red Blood Cells % 0 %; Platelet Count 316 10^3/cmm (157-399); Red Blood Count 4.70 10^6/uL (3.85-5.65); White Blood Count 6.85 10^3/uL (3.29-11.43)
[2025-08-30 08:48] LABS: Alanine Aminotransferase 15 U/L (0-33); Albumin Level 3.9 g/dL (3.5-5.2); Alkaline Phosphatase 99 U/L (35-105); Anion Gap 12.7 (5-19); Aspartate Amino Transferase 17 U/L (0-32); Blood Urea Nitrogen 19 mg/dL (8-23); Calcium 9.2 mg/dL (8.5-10.5); Carbon Dioxide 29 mmol/L (22-29); Chloride 104 mmol/L (98-107); Globulin 3.1 g/dL (1.3-4.6); Glucose 118 mg/dL (65-115); Osmolality Calculated 295 mOsm/kg (285-295); Potassium 4.7 mmol/L (3.5-5.1); Sodium 141 mmol/L (136-145); Total Protein 7.0 g/dL (6.6-8.7)
== END 2025-09-18 23:59 | disposition home or self-care (01) ==
PROVIDERS: Internal Medicine; PCP Family Medicine; Visit Provider Internal Medicine
DX: R91.8 Other nonspecific abnormal finding of lung field (principal); Z85.3 Personal history of malignant neoplasm of breast; Z85.850 Personal history of malignant neoplasm of thyroid; Z85.820 Personal history of malignant melanoma of skin; Z85.43 Personal history of malignant neoplasm of ovary; Z87.891 Personal history of nicotine dependence; Z79.899 Other long term (current) drug therapy; Z90.13 Acquired absence of bilateral breasts and nipples; Z90.710 Acquired absence of both cervix and uterus; Z90.09 Acquired absence of other part of head and neck
CPT/HCPCS: 36415; 80053; 85025; 99213